=== PATIENT | female | born 1955 | race African-American/Black ===

== ENCOUNTER 2017-11-13 19:19 | Emergency (ER) | payer MEDICARE, MEDICAID ==
[~2017-11-13] VITALS: Ht 157.5 cm; Wt 102.5 kg
[~2017-11-13 19:19] MED LIST: ALDACTONE25 MG ORAL; ASPIRIN81 MG ORAL; AVAPRO150 MG ORAL; COREG3.125 MG ORAL; COUMADIN7.5 MG ORAL; FUROSEMIDE40 MG ORAL; GLIPIZIDE-METF1 EAC2; HUMULIN R100 UNIT/1; LOTRISONE TOPIC; NOVOLOG100 UNITS1; TEMOVATE15 GM TOPIC; UNOBMED; VERAPAMIL ER180 MG PO
[2017-11-13] MEDS ORDERED: ACETAMINOPHEN-1 EAC1 ORAL (20:52)
[2017-11-13] MEDS ORDERED: AMOXICILLIN500 MG ORAL (20:52)
[2017-11-13 21:18] VITALS: BP 134/89
--- NOTE | 2017-11-13 21:55 | Emergency Room Report ---
History of Present Illness General Chief Complaint: Toothache Source: Patient, Medical Record Present Illness HPI The patient is a 62-year-old female presenting for tooth pain. She states that this began 4 days prior. Pain is a 10 out of 10 throbbing sensation to the right upper jaw. Pain worse with chewing. She has not taken any pain medications at home. She also noticed increased bleeding to the area with brushing. She denies any other symptoms including nausea, vomiting, fever, chills, sore throat, rash Allergies: Coded Allergies: No Known Allergies (Unverified , 09/09/16) Patient History Past Medical History: see triage record Pertinent Family History: none Last Menstrual Period: none Now: No : 2 Para: 2 Reviewed Nursing Documentation: PMH: Agreed, PSxH: Agreed Nursing Documentation-PMH Hx Hypertension: Yes Hx Diabetes: Yes Review of Systems All Other Systems: negative except mentioned in HPI Physical Exam Vital Signs Date Time Temp Pulse Resp B/P (MAP) Pulse Ox O2 Delivery O2 Flow Rate FiO2 11/13/17 19:32 102.0 115 18 145/69 94 Room Air Sp02 EP Interpretation: reviewed, normal General Appearance: no apparent distress, alert, GCS 15, non-toxic Head: normocephalic, atraumatic Eyes: bilateral eye normal inspection, bilateral eye PERRL ENT: hearing grossly normal, normal pharynx, no angioedema, normal voice, other - TTP over the R upper premolar. No fluctuance. There is some surrounding erythema Neck: full range of motion, supple/symm/no masses Respiratory: chest non-tender, lungs clear, normal breath sounds, speaking full sentences Cardiovascular #1: regular rate, rhythm, no edema Musculoskeletal: back normal, gait/station normal, normal range of motion, non- tender Neurologic: alert, oriented x3, responsive, motor strength/tone normal, sensory intact, speech normal Psychiatric: judgement/insight normal, memory normal, mood/affect normal, no suicidal/homicidal ideation Skin: normal color, no rash, warm/dry, well hydrated Medical Decision Making PA Attestation Dr. Rivera is my supervising physician. Patient management was discussed with my supervising physician Diagnostic Impression: Primary Impression: Dental infection ER Course The patient is a 62-year-old female presenting for tooth pain. Diagnoses considered but not limited to: Dental zaida, dental abscess, toothache , gingivitis PE: Afebrile. NAD TTP over the R upper premolar. No fluctuance. There is some surrounding erythema No lymphadenopathy The patient will be DC'ed home and needs to see dentist RANDI. She is given a prescription for pain medication and amoxicillin. ER precautions given Last Vital Signs Date Time Temp Pulse Resp B/P (MAP) Pulse Ox O2 Delivery O2 Flow Rate FiO2 11/13/17 21:18 102.0 18 134/89 94 Room Air 11/13/17 19:32 115 Status: improved Disposition: HOME, SELF-CARE Condition: Improved Scripts Amoxicillin* (AMOXIL*) 500 Mg Capsule 500 MG ORAL Q12HR, #20 CAP Prov: DORY RICO 11/13/17 Acetaminophen With Codeine (T#3) (TYLENOL #3 TAB*) Y Tab 1 TAB ORAL Q6HR Y for For Pain, #10 TAB Prov: DORY RICO. 11/13/17 Patient Instructions: Dental Pain Additional Instructions: Please follow up with dentist as soon as possible. Return to the emergency department if you notice fever, chills, increasing pain , difficulty swallowing, inability to open jaw, or for any other reason DORY RICO Nov 13, 2017 21:55
== END 2017-11-13 21:18 | disposition home or self-care (01) ==
LOC: EMR 19:50
DX: K04.7 Periapical abscess without sinus (principal); E11.9 Type 2 diabetes mellitus without complications; I10 Essential (primary) hypertension
CPT/HCPCS: 99283

== ENCOUNTER 2017-11-18 19:04 | Inpatient (IN) | payer MEDICARE, MEDICAID ==
[~2017-11-18] VITALS: Ht 157.5 cm; Wt 95.7 kg
[~2017-11-18 19:04] MED LIST changes: +ACETAMINOPHEN-1 EAC1 ORAL; +AMOXICILLIN500 MG ORAL
[2017-11-18] MEDS ORDERED: HYDROCHLOROTH12.5 MG ORAL (19:37)
[2017-11-18] MEDS ORDERED: CARTIA XT120 MG ORAL (19:37)
[2017-11-18] MEDS ORDERED: FOLIC ACID1 MG ORAL (19:37)
[2017-11-18] MEDS ORDERED: PANTOPRAZOLE SO40 MG ORAL (19:37)
[2017-11-18] MEDS ORDERED: ZESTRIL10 MG ORAL (19:37)
[2017-11-18] MEDS ORDERED: ASPIRIN EC81 MG ORAL (19:37)
[2017-11-18] MEDS ORDERED: Aspirin Baby 81mg ORAL ONE (19:45)
[2017-11-18 19:54] VITALS: BP 127/86
[2017-11-18 20:02] LABS: HEMOGLOBIN 7.9 G/DL (12.0-16.0); MEAN CORPUSCULAR VOLUME 88 FL (80-99); PLATELET COUNT 289 K/UL (150-450); RED BLOOD COUNT 2.94 M/UL (4.20-5.40); RED CELL DISTRIBUTION WIDTH 13.5 % (11.6-14.8); WHITE BLOOD COUNT 11.8 K/UL (4.8-10.8)
[2017-11-18 20:30] LABS: ALANINE AMINOTRANSFERASE 46 U/L (12-78); ALBUMIN 2.7 G/DL (3.4-5.0); ALBUMIN/GLOBULIN RATIO 0.5 (1.0-2.7); ALKALINE PHOSPHATASE 124 U/L (46-116); ANION GAP 10 mmol/L (5-15); ASPARTATE AMINO TRANSFERASE 57 U/L (15-37); BILIRUBIN,TOTAL 0.6 MG/DL (0.2-1.0); BLOOD UREA NITROGEN 94 mg/dL (7-18); CALCIUM 8.9 MG/DL (8.5-10.1); CARBON DIOXIDE 25 MMOL/L (21-32); CHLORIDE 96 MMOL/L (98-107); CREATININE 3.6 MG/DL (0.55-1.30); SODIUM 131 MMOL/L (136-145)
[2017-11-18 20:40] LABS: APPEARANCE,URINE SLIGHTLY CLOUDY; BILIRUBIN, URINE 1+ (NEGATIVE); GLUCOSE, URINE (UA) 3+ (NEGATIVE); KETONES,URINE 1+ (NEGATIVE); LEUKOCYTE ESTERASE ,URINE 1+ (NEGATIVE); NITRITE,URINE NEGATIVE (NEGATIVE); PH,URINE 5 (4.5-8.0); PROTEIN,URINE 2+ (NEGATIVE); UROBILINOGEN,URINE NORMAL MG/DL (0.0-1.0)
[2017-11-18 20:41] LABS: COLOR,URINE YELLOW
[2017-11-18] MEDS ORDERED: Sodium Polystyrene Sulfonate 15gm Powder ORAL ONE (20:45)
[2017-11-18] MEDS ORDERED: Calcium Gluconate 1gm/10ml vial IVP ONE (20:45)
--- NOTE | 2017-11-18 20:45 | Emergency Room Report ---
History of Present Illness General Chief Complaint: General Complaint Source: Patient Present Illness HPI 62-year-old female brought in by EMS for altered mental status Time of evaluation, family members not present Patient endorses "the devil poisoned my soup." States she is not sure if she took all her medication today HPI otherwise limited Allergies: Coded Allergies: No Known Allergies (Unverified , 09/09/16) Patient History Last Menstrual Period: NA Now: No Nursing Documentation-PMH Hx Hypertension: Yes Hx Diabetes: Yes Physical Exam Vital Signs Date Time Temp Pulse Resp B/P (MAP) Pulse Ox O2 Delivery O2 Flow Rate FiO2 11/18/17 19:10 98.2 159 22 107/62 98 Sp02 EP Interpretation: reviewed, normal General Appearance: normal inspection, well appearing, no apparent distress, alert, GCS 15, non-toxic Head: normocephalic, atraumatic Eyes: bilateral eye PERRL, bilateral eye EOMI ENT: normal ENT inspection, hearing grossly normal, normal pharynx, no angioedema, normal voice, TMs + canals normal, uvula midline, moist mucus membranes Neck: normal inspection, full range of motion, supple, thyroid normal, no meningismus, no bony tend Respiratory: normal inspection, lungs clear, normal breath sounds, no rhonchi, no respiratory distress, no retraction, no accessory muscle use, no wheezing, speaking full sentences Cardiovascular #1: no edema, no JVD, normal capillary refill, tachycardia Gastrointestinal: normal inspection, normal bowel sounds, non tender, soft, no mass, no peritonitis, non-distended, no guarding, no hernia, no pulsatile mass Genitourinary: no CVA tenderness Musculoskeletal: normal inspection, back normal, normal range of motion, no calf tenderness, pelvis stable, Jelena's Sign negative Neurologic: normal inspection, alert, oriented x3, responsive, physiotherapy assistant III-XII nml as tested, motor strength/tone normal, cerebellar normal, normal gait, speech normal Psychiatric: normal inspection, judgement/insight normal, mood/affect normal, no suicidal/homicidal ideation, no delusions Skin: normal inspection, normal color, no rash Lymphatic: normal inspection, no adenopathy Medical Decision Making Diagnostic Impression: Primary Impression: Hyperkalemia Additional Impressions: Tachycardia CKD (chronic kidney disease) Qualified Codes: N18.9 - Chronic kidney disease, unspecified ER Course 62-year-old female with altered mental status On monitor patient's heart rate fluctuates between 107 and 145 many PVCs seen ECG sinus tachycardia, new T wave inversions in the inferior and lateral leads not seen on previous ECG here Was given aspirin Labs show potassium of 6.0, elevated serum creatinine Was given calcium gluconate, and insulin (glucose over 400), and Kayexalate Was not given albuterol for hyperkalemia 22 tachycardia Troponin within normal limits CT head does not show any contribution to altered mental status Dr Cardona from insurance approved for stay here d/t elevated K Endorsed to Dr Sutton per insurance Tele admit, 1022p, EKG Diagnostic Results Rate: tachycardiac Rhythm: NSR ST Segments: other - TWI in inferior and lateral leads Rhythm Strip Diag. Results EP Interpretation: yes Rate: 107-150 Rhythm: other - Multiple PVCs Chest X-Ray Diagnostic Results Chest X-Ray Diagnostic Results : Chest X-Ray Ordered: Yes # of Views/Limited/Complete: 1 View Indication: Other - AMS EP Interpretation: Yes Interpretation: no consolidation, no effusion, no pneumothorax, no acute cardiopulmonary disease Impression: No acute disease Electronically Signed by: Dr Maisha Perales MD Last Vital Signs Date Time Temp Pulse Resp B/P (MAP) Pulse Ox O2 Delivery O2 Flow Rate FiO2 11/18/17 19:54 98.2 146 22 127/86 98 Status: improved Disposition: ADMITTED INPATIENT Condition: Serious Referrals: NON PHYSICIAN (PCP) MAISHA PERALES M.D. Nov 18, 2017 20:45
[2017-11-18] MEDS ORDERED: cefTRIAXone 1 GM in NS 55 ML IVPB ONE (22:00)
[2017-11-18 22:28] VITALS: BP 150/74
[2017-11-18 23:07] LABS: INR > 10.0 (0.9-1.1)
[2017-11-18] MEDS ORDERED: Phytonadione 5 MG in D5W 55 ML IVPB ONE (23:30)
[2017-11-18 23:36] VITALS: BP 119/47
[2017-11-19] VITALS (17 sets, daily range): BP systolic 112–159; BP diastolic 43–117
[2017-11-19] MEDS ORDERED: D5 1/2NS 1,000 ML IV SCH (00:12)
[2017-11-19] MEDS ORDERED: Phytonadione 10 mg/mL 1ml amp ONE ×2 (01:28→06:22)
[2017-11-19 05:14] LABS: HEMATOCRIT 21.6 % (37.0-47.0); MEAN CORPUSCULAR VOLUME 90 FL (80-99); PLATELET COUNT 266 K/UL (150-450); RED BLOOD COUNT 2.42 M/UL (4.20-5.40); RED CELL DISTRIBUTION WIDTH 14.1 % (11.6-14.8)
[2017-11-19 05:24] LABS: INR > 10.0 (0.9-1.1)
[2017-11-19 05:25] LABS: HEMOGLOBIN 6.8 G/DL (12.0-16.0)
[2017-11-19 05:40] LABS: ALANINE AMINOTRANSFERASE 37 U/L (12-78); ALBUMIN 2.4 G/DL (3.4-5.0); ALBUMIN/GLOBULIN RATIO 0.5 (1.0-2.7); ALKALINE PHOSPHATASE 104 U/L (46-116); ANION GAP 15 mmol/L (5-15); ASPARTATE AMINO TRANSFERASE 47 U/L (15-37); BILIRUBIN,TOTAL 0.6 MG/DL (0.2-1.0); BLOOD UREA NITROGEN 97 mg/dL (7-18); CALCIUM 8.6 MG/DL (8.5-10.1); CARBON DIOXIDE 20 MMOL/L (21-32); CHLORIDE 98 MMOL/L (98-107); CREATININE 2.9 MG/DL (0.55-1.30); POTASSIUM 5.6 MMOL/L (3.5-5.1); SODIUM 133 MMOL/L (136-145)
[2017-11-19] MEDS ORDERED: Phytonadione 10 MG in D5W 55 ML IVPB ONE (05:45)
[2017-11-19] MEDS: NovoLOG Insulin Flexpen SUBQ SCH ×4 (06:05→21:07)
--- NOTE | 2017-11-19 08:19 | Diagnostic Imaging Report ---
Indication: Altered mental status Technique: XRAY Chest 1v Comparison: 09/09/2016 Findings: Heart size and mediastinal contours are stable. There is pulmonary vascular congestion. There is no focal airspace consolidation, pleural effusion or pneumothorax. Multilevel degenerative changes are seen in the thoracic spine. No acute osseous abnormality is seen. Impression: Cardiomegaly with pulmonary vascular congestion.
[2017-11-19] MEDS ORDERED: metFORMIN 500mg tab ORAL SCH (09:00)
[2017-11-19] MEDS ORDERED: GlipiZIDE 5mg tab ORAL SCH (09:00)
[2017-11-19] MEDS ORDERED: cefTRIAXone 1 GM in NS 55 ML IVPB SCH (09:00)
[2017-11-19] MEDS ORDERED: dilTIAZem HCl CD 120mg cap ORAL SCH (09:00)
[2017-11-19] MEDS ORDERED: Aspirin Baby 81mg ORAL SCH (09:00)
--- NOTE | 2017-11-19 09:37 | Diagnostic Imaging Report ---
Indication: Mental status Technique: Continuous helical CT scanning of the head was performed utilizing automated exposure control without intravenous contrast material. Axial and coronal reconstructions were obtained. Comparison: None CT dose: Total DLP 1400.72 mGycm; CTDI vol 70.38 mGy Findings: There is no acute intracranial hemorrhage, mass effect or cortical edema. The ventricles, cisterns and sulci are prominent consistent with atrophy. Mild periventricular hypoattenuation is seen, a nonspecific finding. The posterior fossa and fourth ventricle are unremarkable. Visualized mastoid air cells and paranasal sinuses are unremarkable. No focal lesions of the bony calvarium or soft tissues of the scalp are seen. Atherosclerotic calcifications noted in the cavernous portions of the bilateral internal carotid arteries. Impression: No evidence of acute intracranial hemorrhage, mass effect or cortical edema. MRI may be obtained for more sensitive evaluation as clinically indicated. Mild atrophy and nonspecific periventricular hypoattenuation suggestive of chronic ischemic microvascular changes. This corresponds with the statrad preliminary report. The CT scanner at [facility] is accredited by the [employer] and the scans are performed using protocols designed to limit radiation exposure to as low as reasonably achievable to attain images of sufficient resolution adequate for diagnostic evaluation.
[2017-11-19] MEDS: D5 1/2NS 1,000 ML IV SCH (12:30)
[2017-11-19] MEDS ORDERED: Insulin Rate Change 1 Each MISC PRN (14:30)
[2017-11-19] MEDS ORDERED: NovoLOG Insulin Flexpen SUBQ SCH (16:30)
[2017-11-19] MEDS: GlipiZIDE 5mg tab ORAL SCH (16:49)
--- NOTE | 2017-11-19 18:27 | History & Physical ---
History and Physical History & Physicial # [id number] arf with hyperkalemia coagulopathy anemia htn ams delirium TIARRA ENGLISH DO Nov 19, 2017 18:27
[2017-11-19] MEDS: Levemir Flexpen SUBQ SCH (18:55)
--- NOTE | 2017-11-19 21:45 | History and Physical Report ---
DATE OF ADMISSION: 11/18/2017 REASON FOR CONSULTATION: Altered mental status. HISTORY OF PRESENT ILLNESS: This is a 62-year-old female, brought in by [facility] for altered mental status and delirium. The patient was hallucinating and was unable to provide history. In the emergency room, she was found to have hyperkalemia, tachycardia, renal insufficiency, was given calcium gluconate, insulin, and Kayexalate. CT of her head did not show any bleed or shift or mass and she was transferred to the floor. Subsequently, she was found to have an INR of 10 and a PTT of 100 in the emergency room and that was repeated today. She was given FFP and platelets, and in addition, her potassium and sodium were and elevated and reduced respectively and transferred to the intensive care unit. She is arousable. She tolerated dinner tonight. She is currently in no acute respiratory distress. She was also experiencing hyperglycemia and was initially started on an insulin drip that subsequently was stopped and Levemir has been started. PAST MEDICAL HISTORY: Includes diabetes, hypertension, obesity, GERD. SOCIAL HISTORY: Negative for tobacco, alcohol, or drugs. PRESENT MEDICATIONS: Prehospital course of medications reviewed, reconciled, and documented in the electronic medical record. PHYSICAL EXAMINATION: GENERAL: At the time of my exam, she is alert and oriented as stated, no acute respiratory distress. VITAL SIGNS: She is currently afebrile. Her pulse is 89, blood pressure 127/43, she is 99% on room air. HEENT: Normocephalic and atraumatic. Oropharynx is moist. Nasal mucosa moist. NECK: Supple. No lymphadenopathy. LUNGS: Decreased breath sounds at the bases. No wheeze present. HEART: Regular rate and rhythm without a murmur. ABDOMEN: Soft, nontender, but obese. Positive bowel sounds. EXTREMITIES: With trace edema. No focal neurologic deficits. Follows commands and conversation is appropriate. LABORATORY DATA: Her current laboratory values show sodium 138, potassium 5.6, chloride 98, bicarb 20, BUN is 97, creatinine is 2.9, glucose is 499. Her white count 10, her hemoglobin was 6.8, and her platelets were 266,000. Her last INR was 10. Her urinalysis was 1+ leukocyte esterase. No culture is pending, and her medications have been reviewed. ASSESSMENT: Acute renal insufficiency with hyperkalemia; hypertension; coagulopathy with significantly elevated INR; diabetes, poorly-controlled; and altered mental status. PLAN: Plan for the patient, continue to follow her in the intensive care unit. Repeat her labs in the morning including a PTT, glycemic control per Dr. Piper. Aspiration precautions. IV antibiotics. We will check urine culture. Recheck her labs in the morning, monitor her progress, and treat hyperkalemia accordingly. Wound Care and we will continue to follow the patient for the remainder of her hospital stay. Miguelina Cervantes D.O. DR: JOSEPH JOB#: [id number] CC:
[2017-11-20] VITALS (18 sets, daily range): BP systolic 120–170; BP diastolic 41–106
[2017-11-20] MEDS: D5 1/2NS 1,000 ML IV SCH ×2 (01:50→11:04)
[2017-11-20] MEDS: GlipiZIDE 5mg tab ORAL SCH ×2 (06:20→16:28)
[2017-11-20] MEDS: Levemir Flexpen SUBQ SCH ×2 (06:22→18:33)
[2017-11-20] MEDS: NovoLOG Insulin Flexpen SUBQ SCH ×8 (06:23→21:22)
[2017-11-20] MEDS ORDERED: cefTRIAXone 1 GM in NS 55 ML IVPB SCH (09:00)
[2017-11-20] MEDS ORDERED: dilTIAZem HCl CD 120mg cap ORAL SCH (09:00)
[2017-11-20] MEDS ORDERED: Aspirin Baby 81mg ORAL SCH (09:00)
[2017-11-20 09:19] LABS: BASOPHILS % (AUTO) 0.8 % (0.0-2.0); EOSINOPHILS % (AUTO) 0.5 % (0.0-3.0); HEMATOCRIT 27.2 % (37.0-47.0); HEMOGLOBIN 8.1 G/DL (12.0-16.0); LYMPHOCYTES % (AUTO) 12.1 % (20.0-45.0); MEAN CORPUSCULAR VOLUME 95 FL (80-99); NEUTROPHILS % (AUTO) 70.7 % (45.0-75.0); PLATELET COUNT 241 K/UL (150-450); RED BLOOD COUNT 2.86 M/UL (4.20-5.40); WHITE BLOOD COUNT 7.1 K/UL (4.8-10.8)
[2017-11-20 09:28] LABS: INR 1.2 (0.9-1.1)
--- NOTE | 2017-11-20 10:06 | Diagnostic Imaging Report ---
Indication: Altered mental status Technique: XRAY Chest 1v Comparison: 11/16/2017 Findings: Heart size and mediastinal contours are stable. There is pulmonary vascular congestion. Subtle haziness of the right lower lung likely related to bronchovascular crowding given low lung volumes and vascular congestion. Developing pneumonia is not entirely excluded. No pneumothorax or pleural effusion. Multilevel degenerative changes are seen in the thoracic spine. No acute osseous abnormality is seen. Impression: Cardiomegaly with pulmonary vascular congestion. Subtle haziness in the right lower lung possibly related to vascular crowding given low lung volumes, developing pneumonia is not excluded. Follow-up exam recommended.
[2017-11-20] MEDS ORDERED: D5 1/2NS 1000ml IV ONE ×2 (10:43→15:46)
[2017-11-20] MEDS ORDERED: Tubing Blood Filter IV ONE (10:43)
[2017-11-20] MEDS ORDERED: NS 500ML ONE (10:43)
[2017-11-20 10:54] LABS: ALANINE AMINOTRANSFERASE 34 U/L (12-78); ALBUMIN/GLOBULIN RATIO 0.5 (1.0-2.7); ALKALINE PHOSPHATASE 92 U/L (46-116); ANION GAP 7 mmol/L (5-15); ASPARTATE AMINO TRANSFERASE 38 U/L (15-37); BILIRUBIN,TOTAL 0.7 MG/DL (0.2-1.0); BLOOD UREA NITROGEN 54 mg/dL (7-18); CARBON DIOXIDE 26 MMOL/L (21-32); CHLORIDE 99 MMOL/L (98-107); CREATININE 1.8 MG/DL (0.55-1.30); POTASSIUM 3.1 MMOL/L (3.5-5.1); SODIUM 132 MMOL/L (136-145)
--- NOTE | 2017-11-20 15:06 | Cardiology Report ---
APPROVED REPORT EKG Measurement Heart [id number] Sinus tachycardia T wave abnormality, consider inferolateral ischemia Abnormal ECG
--- NOTE | 2017-11-20 15:18 | Pulmonolgy Critical Care Note ---
Critical Care - Asmt/Plan Assessment/Plan: Acute renal insufficiency with hyperkalemia; hypertension; coagulopathy with significantly elevated INR; diabetes, poorly-controlled; altered mental status. BS per endocrine (Dr Hill) INR resolved IVF aspiration precautions fu labs am cxr with edema, check Echo pt 35 mintues of critical care time reviewing the case,discussing [facility] staff, orders and dw patient. Critical Care - Objective Last 24 Hour Vital Signs Date Time Temp Pulse Resp B/P (MAP) Pulse Ox O2 Delivery O2 Flow Rate FiO2 11/20/17 12:00 78 24 137/46 95 Room Air 11/20/17 12:00 78 11/20/17 11:00 79 24 149/47 95 Room Air 11/20/17 10:00 84 24 146/62 97 Room Air 11/20/17 09:00 88 24 165/58 98 Room Air 11/20/17 08:54 88 157/61 11/20/17 08:54 96 157/61 11/20/17 08:00 89 11/20/17 08:00 99.3 92 27 157/61 100 Room Air 11/20/17 07:00 88 24 170/106 95 Room Air 11/20/17 06:00 83 20 154/52 95 Room Air 11/20/17 05:00 86 24 131/46 94 Room Air 11/20/17 04:00 99.0 85 26 138/41 95 Room Air 11/20/17 03:45 87 11/20/17 03:00 87 26 138/42 94 Room Air 11/20/17 02:00 91 26 126/46 95 Room Air 11/20/17 01:00 91 27 136/53 96 Room Air 11/20/17 00:20 88 11/20/17 00:00 99.1 91 26 120/49 97 Room Air 11/19/17 23:00 100 24 136/43 98 Room Air 11/19/17 22:00 102 24 141/117 97 Room Air 11/19/17 21:01 100 153/54 11/19/17 21:00 99.0 97 25 150/45 94 Room Air 11/19/17 20:00 99.3 96 27 135/60 95 Room Air 11/19/17 19:50 91 11/19/17 19:00 88 19 130/59 99 Room Air 11/19/17 18:00 89 20 147/43 99 Room Air 11/19/17 17:00 90 20 146/57 99 Room Air 11/19/17 16:00 98.0 94 20 112/49 99 Room Air 11/19/17 16:00 90 Status: awake Lungs: clear Heart: HR/BP stable Abdomen: soft, non-tender Extremities: no C/C/E Decubiti: stage Micro: Microbiology Date/Time Source Procedure Growth Status 11/18/17 20:25 Urine,Clean Catch Urine Culture - Preliminary NO GROWTH Resulted Accucheck: 304 Blood Sugars: BS not controlled Critical Care - Subjective ROS Limited/Unobtainable: Yes Condition: improving I&O: Intake and Output 11/19/17 11/20/17 19:00 07:00 Intake Total 558.76 ml 1300 ml Output Total 500 ml 150 ml Balance 58.76 ml 1150 ml Intake Oral 300 ml IV Total 28.76 ml 750 ml Blood Product 500 ml 250 ml Other 30 ml Output Urine Total 500 ml 150 ml # Voids 3 2 # Bowel Movements 2 Subjective: much improved not confused toelrating po no fever no bleeding oob but waek no cp cough or Labs: Current Medications Medications (Trade) Dose Ordered Sig/Helen Route PRN Reason Start Time Stop Time Status Last Admin Dose Admin Aspirin (ASA) 81 mg DAILY ORAL 11/20/17 09:00 12/19/17 08:59 11/20/17 08:53 Carvedilol (Coreg) 3.125 mg EVERY 12 HOURS ORAL 11/19/17 21:00 12/19/17 08:59 11/20/17 08:54 Ceftriaxone Sodium 1 gm/ Sodium Chloride 55 ml @ 110 mls/hr DAILY IVPB 11/20/17 09:00 11/26/17 08:59 11/20/17 08:53 Dextrose (Dextrose 50%) PRN PRN IV HYPOGLYCEMIA 11/19/17 13:30 12/19/17 13:29 Dextrose (Dextrose 50%) STAT PRN IV Hypoglycemia 11/20/17 05:00 12/19/17 04:59 Dextrose/Sodium Chloride 1,000 ml @ 75 mls/hr [id number] IV 11/19/17 12:30 12/19/17 00:11 11/20/17 11:04 Diltiazem HCl (Cardizem CD) 120 mg DAILY ORAL 11/20/17 09:00 12/19/17 08:59 11/20/17 08:54 Folic Acid (Folate) 1 mg DAILY ORAL 11/20/17 09:00 12/19/17 08:59 11/20/17 08:54 Glipizide (Glucotrol) 5 mg BIAC ORAL 11/19/17 16:30 12/19/17 16:29 11/20/17 06:20 Insulin Aspart (NovoLOG) BEFORE MEALS AND HS SUBQ 11/19/17 21:00 12/19/17 20:59 11/20/17 11:37 Insulin Aspart (NovoLOG) 10 units BEFORE MEALS AND HS SUBQ 11/19/17 21:00 12/19/17 20:59 11/20/17 11:39 Insulin Detemir (Levemir) 25 units Q12HR@0600,1800 SUBQ 11/19/17 19:00 12/19/17 18:59 11/20/17 06:22 Pantoprazole (Protonix) 40 mg ACBREAKFAST ORAL 11/20/17 06:30 12/20/17 06:29 11/20/17 06:20 Laboratory Tests Test 11/20/17 08:50 White Blood Count 7.1 K/UL (4.8-10.8) Red Blood Count 2.86 M/UL (4.20-5.40) L Hemoglobin 8.1 G/DL (12.0-16.0) L Hematocrit 27.2 % (37.0-47.0) L Mean Corpuscular Volume 95 FL (80-99) Mean Corpuscular Hemoglobin 28.3 PG (27.0-31.0) Mean Corpuscular Hemoglobin Concent 29.8 G/DL (32.0-36.0) L Red Cell Distribution Width 14.0 % (11.6-14.8) Platelet Count 241 K/UL (150-450) Mean Platelet Volume 6.9 FL (6.5-10.1) Neutrophils (%) (Auto) 70.7 % (45.0-75.0) Lymphocytes (%) (Auto) 12.1 % (20.0-45.0) L Monocytes (%) (Auto) 16.0 % (1.0-10.0) H Eosinophils (%) (Auto) 0.5 % (0.0-3.0) Basophils (%) (Auto) 0.8 % (0.0-2.0) Prothrombin Time 12.7 SEC (9.30-11.50) H Prothromb Time International Ratio 1.2 (0.9-1.1) H Sodium Level 132 MMOL/L (136-145) L Potassium Level 3.1 MMOL/L (3.5-5.1) L Chloride Level 99 MMOL/L (98-107) Carbon Dioxide Level 26 MMOL/L (21-32) Anion Gap 7 mmol/L (5-15) Blood Urea Nitrogen 54 mg/dL (7-18) H Creatinine 1.8 MG/DL (0.55-1.30) H Estimat Glomerular Filtration Rate 34.4 mL/min (>60) Glucose Level 841 MG/DL (74-106) #*H Calcium Level 7.0 MG/DL (8.5-10.1) L Magnesium Level 2.4 MG/DL (1.8-2.4) Total Bilirubin 0.7 MG/DL (0.2-1.0) Aspartate Amino Transf (AST/SGOT) 38 U/L (15-37) H Alanine Aminotransferase (ALT/SGPT) 34 U/L (12-78) Alkaline Phosphatase 92 U/L (46-116) Troponin I 0.027 ng/mL (0.000-0.056) Total Protein 6.1 G/DL (6.4-8.2) L Albumin 2.0 G/DL (3.4-5.0) L Globulin 4.1 g/dL Albumin/Globulin Ratio 0.5 (1.0-2.7) TIARRA MENSAH DO Nov 20, 2017 15:17
[2017-11-20] MEDS ORDERED: Tubing IV Secondary IV ONE (15:46)
[2017-11-20] MEDS ORDERED: D5 1/2NS 1,000 ML IV SCH (19:00)
[2017-11-21] VITALS: BP 157/73
--- NOTE | 2017-11-21 04:00 | Consultation ---
DATE OF CONSULTATION: 11/20/2017 EDOCRINOLOGY CONSULTATION LOCATION: ICU Bed B. CONSULTING PHYSICIAN: Ramu Piper M.D. REFERRING PHYSICIAN: Ramu Sutton M.D. REASON FOR CONSULTATION: I was asked to see this 62-year-old black female referred by Dr. Sutton in Endocrinology consultation for evaluation and management of type 2 diabetes mellitus out of control rPERTINENT HISTORY: The patient had altered mental status with glucose of __[id number], who is being transferred to ICU. She was started on detemir insulin 25 units q.12 hours, NovoLog 10 units t.i.d. before meals. PAST MEDICAL HISTORY: Hypertension and obesity PAST SURGICAL HISTORY: negative__ FAMILY HISTORY: Unremarkable. PERSONAL HISTORY: Tobacco abuse. REVIEW OF SYSTEMS: A 14-point review is unremarkable _. PHYSICAL EXAMINATION: GENERAL: The patient is obese in no acute distress. VITAL SIGNS: Blood pressure _140/80, pulse 92, respiratory rate _18,T98.Wl 100 kg._ . HEENT: Unremarkable. LUNGS: Clear. CARDIOVASCULAR: Heart sounds are regular. ABDOMEN: Obese. Bowel sounds present. EXTREMITIES: No edema. NEUROLOGIC: Cranial nerves II through XII intact. Toes are downgoing to plantar stimulation. LABORATORY DATA: Glucose 379, ASSESSMENT: 1.Diabetes Mellitus coming under contro 2.Hypetension PLAN: Detemir 25u sxc q12 with Novolog 10u sc TID a dglucotrol 5 mg po qam, BMP and Hba1c in am. isinopril 10 mg po qam.Ns 75 cc/hr.BMP an [id number] in am. Ramu Piper M.D. DR: Nishi JOB#: [id number] CC: DANO
[2017-11-21 04:15] VITALS: BP 142/72
[2017-11-21] MEDS: GlipiZIDE 5mg tab ORAL SCH ×2 (06:22→17:05)
[2017-11-21] MEDS: Levemir Flexpen SUBQ SCH ×2 (06:24→17:08)
[2017-11-21] MEDS: NovoLOG Insulin Flexpen SUBQ SCH ×9 (06:25→21:55)
[2017-11-21] MEDS: Albuterol/Ipratropium 3ml neb HHN PRN ×2 (06:39→11:47)
[2017-11-21 06:48] LABS: BASOPHILS % (AUTO) 0.8 % (0.0-2.0); EOSINOPHILS % (AUTO) 1.2 % (0.0-3.0); LYMPHOCYTES % (AUTO) 15.4 % (20.0-45.0); MEAN CORPUSCULAR VOLUME 89 FL (80-99); MONOCYTES % (AUTO) 18.8 % (1.0-10.0); NEUTROPHILS % (AUTO) 63.8 % (45.0-75.0); PLATELET COUNT 279 K/UL (150-450); RED BLOOD COUNT 3.14 M/UL (4.20-5.40); RED CELL DISTRIBUTION WIDTH 13.1 % (11.6-14.8); WHITE BLOOD COUNT 6.9 K/UL (4.8-10.8)
[2017-11-21 07:03] LABS: ANION GAP 3 mmol/L (5-15); BLOOD UREA NITROGEN 36 mg/dL (7-18); CALCIUM 8.1 MG/DL (8.5-10.1); CARBON DIOXIDE 31 MMOL/L (21-32); CHLORIDE 106 MMOL/L (98-107); CREATININE 1.3 MG/DL (0.55-1.30); POTASSIUM 3.7 MMOL/L (3.5-5.1); SODIUM 140 MMOL/L (136-145)
[2017-11-21 08:00] VITALS: BP 132/85
[2017-11-21] MEDS: cefTRIAXone 1 GM in NS 55 ML IVPB SCH (08:50)
[2017-11-21] MEDS: Aspirin Baby 81mg ORAL SCH (08:51)
[2017-11-21] MEDS ORDERED: dilTIAZem HCl CD 120mg cap ORAL SCH (09:00)
--- NOTE | 2017-11-21 11:37 | Diagnostic Imaging Report ---
Indication: Reason For Exam: COPD Technique: XRAY Chest 1v Comparison:11/20/2017 Findings: Patient is taking a poor aspiration. The heart appears enlarged. Pulmonary vascular prominence is noted. No pleural fluid. Bones are unremarkable with the exception of degenerative changes of thoracic spine. Impression: Poor inspiration Cardiomegaly. Mild prominence of pulmonary vascularity. It is uncertain whether this represents congestive heart failure or is secondary to the poor respiration. Follow-up with better inspiration and clinical correlation suggested.
--- NOTE | 2017-11-21 11:59 | General Progress Note ---
Assessment/Plan Assessment/Plan Acute renal insufficiency with hyperkalemia, resolving hypertension coagulopathy with significantly elevated INR diabetes, poorly-controlled altered mental status, resolved BS per endocrine (Dr Piper) INR now normal DC IVF cxr with edema, check Echo OT/PT increase BP rx Subjective Constitutional: Reports: weakness Respiratory: Reports: cough Allergies: Coded Allergies: No Known Allergies (Unverified , 09/09/16) Objective Last 24 Hour Vital Signs Date Time Temp Pulse Resp B/P (MAP) Pulse Ox O2 Delivery O2 Flow Rate FiO2 11/21/17 11:47 81 20 96 Room Air 21 11/21/17 08:52 99 169/68 11/21/17 08:51 99 169/68 11/21/17 08:00 88 11/21/17 08:00 98.2 96 18 132/85 96 11/21/17 06:50 77 20 97 Room Air 21 11/21/17 06:50 74 18 98 Room Air 21 11/21/17 06:39 73 20 97 Room Air 21 11/21/17 04:15 98.0 81 20 142/72 95 Nasal Cannula 11/21/17 04:00 89 11/21/17 00:00 101.7 95 24 157/73 95 Nasal Cannula 0 11/21/17 00:00 90 11/20/17 21:20 96 127/41 11/20/17 20:00 98.0 95 20 137/66 94 11/20/17 20:00 104 11/20/17 16:00 97.8 83 23 127/41 96 Room Air 11/20/17 16:00 96 11/20/17 15:00 85 24 141/48 96 Room Air 11/20/17 14:00 89 24 152/50 98 Room Air 11/20/17 13:00 91 24 149/58 99 Room Air 11/20/17 12:00 98.7 78 24 137/46 95 Room Air 11/20/17 12:00 78 Intake and Output 11/20/17 11/21/17 19:00 07:00 Intake Total 980 ml Output Total 600 ml Balance 380 ml Intake Oral 250 ml IV Total 730 ml Output Urine Total 600 ml # Bowel Movements 2 Laboratory Tests 11/21/17 05:20: White Blood Count 6.9, Red Blood Count 3.14L, Hemoglobin 9.0L, Hematocrit 28.0L , Mean Corpuscular Volume 89, Mean Corpuscular Hemoglobin 28.8, Mean Corpuscular Hemoglobin Concent 32.3, Red Cell Distribution Width 13.1, Platelet Count 279, Mean Platelet Volume 6.8, Neutrophils (%) (Auto) 63.8, Lymphocytes (% ) (Auto) 15.4L, Monocytes (%) (Auto) 18.8H, Eosinophils (%) (Auto) 1.2, Basophils (%) (Auto) 0.8, Sodium Level 140, Potassium Level 3.7, Chloride Level 106, Carbon Dioxide Level 31, Anion Gap 3L, Blood Urea Nitrogen 36H, Creatinine 1.3, Estimat Glomerular Filtration Rate 50.2, Glucose Level 148#H, Calcium Level 8.1L, Magnesium Level 2.1, Pro-B-Type Natriuretic Peptide 1860H Height (Feet): 5 Height (Inches): 2.00 Weight (Pounds): 211 General Appearance: no apparent distress, obese Neck: supple Cardiovascular: normal rate Respiratory/Chest: lungs clear Abdomen: non tender, soft MAISHA BEDOYA Nov 21, 2017 11:59
[2017-11-21 12:00] VITALS: BP 135/53
[2017-11-21 16:00] VITALS: BP 140/63
[2017-11-21] MEDS: dilTIAZem HCl CD 120mg cap ORAL SCH (17:06)
--- NOTE | 2017-11-21 17:15 | Geriatric Medicine Prog Note ---
DATE: 11/21/2017 SUBJECTIVE: The patient is noted to be well controlled _ G/E BP 150/80,P89,R20,T98 RSSP:Clear,CVS-Regular INV:Glucose 180 ASSESSMENT:1.Diabetes Mellitus coming under control 2.Hypertension PLAN: Continue Detemur insulin 25 units q.12 h. and NovoLog 10 units t.i.d. before meals with sliding scale of NovoLog.QID ac anc HS.Lisinopril 10 mg po qd. Ramu Piper M.D. DR: VICKY JOB#: [id number] CC: DANO
[2017-11-21 20:00] VITALS: BP 145/70
[2017-11-22] VITALS: BP 138/87
[2017-11-22 04:00] VITALS: BP 140/75
[2017-11-22] MEDS: GlipiZIDE 5mg tab ORAL SCH ×2 (06:41→16:45)
[2017-11-22] MEDS: Levemir Flexpen SUBQ SCH ×2 (06:42→18:15)
[2017-11-22] MEDS: NovoLOG Insulin Flexpen SUBQ SCH ×8 (06:43→21:43)
--- NOTE | 2017-11-22 07:33 | Cardiology Report ---
APPROVED REPORT EXAM: Two-dimensional and M-mode echocardiogram with Doppler and color Doppler. INDICATION Congestive Heart Failure M-Mode DIMENSIONS IVSd1.0 (0.7-1.1cm)Left Atrium (MM)3.7 (1.6-4.0cm) LVDd5.4 (3.5-5.6cm)Aortic Root2.6 (2.0-3.7cm) PWd1.0 (0.7-1.1cm)Aortic Cusp Exc.1.8 (1.5-2.0cm) LVDs4.6 (2.5-4.0cm) PWs1.2 cm Normal left ventricular chamber size, systolic function and wall motion. Left ventricular ejection fraction estimated to be 55-60%. No evidence of left ventricular hypertrophy. No evidence of pericardial or pleural effusion. All other cardiac chamber sizes are within normal limits. Focal aortic valve sclerosis with adequate cusp excursion. Thickened mitral valve leaflets with normal excursion. Mild mitral annulus and aortic root calcification. Pulmonic valve not well visualized. Normal tricuspid valve structure. IVC is normal in size and collapsible with respiration. A color flow and spectral Doppler study was performed and revealed: No aortic regurgitation. Mild mitral regurgitation. Mitral diastolic function not obtainable due to arrhythmia. No tricuspid regurgitation. Pulmonic regurgitation present.
[2017-11-22 08:00] VITALS: BP 148/75
[2017-11-22 08:09] LABS: BASOPHILS % (AUTO) 0.8 % (0.0-2.0); EOSINOPHILS % (AUTO) 1.3 % (0.0-3.0); HEMATOCRIT 28.5 % (37.0-47.0); HEMOGLOBIN 9.1 G/DL (12.0-16.0); LYMPHOCYTES % (AUTO) 18.7 % (20.0-45.0); MEAN CORPUSCULAR VOLUME 91 FL (80-99); MONOCYTES % (AUTO) 13.8 % (1.0-10.0); NEUTROPHILS % (AUTO) 65.4 % (45.0-75.0); PLATELET COUNT 293 K/UL (150-450); RED BLOOD COUNT 3.12 M/UL (4.20-5.40); RED CELL DISTRIBUTION WIDTH 13.3 % (11.6-14.8); WHITE BLOOD COUNT 6.5 K/UL (4.8-10.8)
[2017-11-22 08:46] LABS: ALANINE AMINOTRANSFERASE 26 U/L (12-78); ALBUMIN 2.2 G/DL (3.4-5.0); ALBUMIN/GLOBULIN RATIO 0.5 (1.0-2.7); ALKALINE PHOSPHATASE 91 U/L (46-116); ANION GAP 6 mmol/L (5-15); ASPARTATE AMINO TRANSFERASE 30 U/L (15-37); BILIRUBIN,TOTAL 0.6 MG/DL (0.2-1.0); BLOOD UREA NITROGEN 24 mg/dL (7-18); CALCIUM 7.8 MG/DL (8.5-10.1); CARBON DIOXIDE 28 MMOL/L (21-32); CHLORIDE 107 MMOL/L (98-107); CHOLESTEROL 100 MG/DL (< 200); CREATININE 1.2 MG/DL (0.55-1.30); HDL CHOLESTEROL 34 MG/DL (40-60); POTASSIUM 3.7 MMOL/L (3.5-5.1); SODIUM 141 MMOL/L (136-145); TRIGLYCERIDES 108 MG/DL (30-150)
[2017-11-22] MEDS: cefTRIAXone 1 GM in NS 55 ML IVPB SCH (09:18)
[2017-11-22] MEDS: Aspirin Baby 81mg ORAL SCH (09:18)
[2017-11-22] MEDS: dilTIAZem HCl CD 120mg cap ORAL SCH ×2 (09:19→18:17)
[2017-11-22 12:00] VITALS: BP 130/60
[2017-11-22] MEDS: Albuterol/Ipratropium 3ml neb HHN PRN (13:07)
--- NOTE | 2017-11-22 13:42 | General Progress Note ---
Assessment/Plan Assessment/Plan Acute renal insufficiency with hyperkalemia, resolving hypertension coagulopathy with significantly elevated INR diabetes, poorly-controlled altered mental status, resolved T to 102 last night, not called BS per endocrine (Dr Piper) INR now normal Echo OK OT/PT ID called HHN Subjective Constitutional: Reports: fever - 102, malaise, weakness Respiratory: Reports: cough - w sputum Allergies: Coded Allergies: No Known Allergies (Unverified , 09/09/16) Objective Last 24 Hour Vital Signs Date Time Temp Pulse Resp B/P (MAP) Pulse Ox O2 Delivery O2 Flow Rate FiO2 11/22/17 13:14 78 20 98 Room Air 21 11/22/17 13:07 80 20 96 Room Air 21 11/22/17 12:00 98.1 95 20 130/60 95 11/22/17 09:19 92 140/75 11/22/17 09:19 92 140/75 11/22/17 08:00 96.8 95 20 148/75 95 11/22/17 08:00 95 11/22/17 04:00 92 11/22/17 04:00 98.7 87 20 140/75 95 11/22/17 00:00 83 11/22/17 00:00 102.0 110 18 138/87 100 11/21/17 21:50 97 145/70 11/21/17 20:00 89 11/21/17 20:00 99.9 97 20 145/70 100 11/21/17 18:05 98.9 11/21/17 18:05 98.9 11/21/17 17:06 80 135/53 11/21/17 16:00 100.0 92 19 140/63 96 11/21/17 16:00 85 Intake and Output 11/21/17 11/22/17 19:00 07:00 Intake Total 730 ml 500 ml Balance 730 ml 500 ml Intake Oral 680 ml IV Total 50 ml 500 ml # Voids 1 2 Laboratory Tests 11/22/17 07:15: White Blood Count 6.5, Red Blood Count 3.12L, Hemoglobin 9.1L, Hematocrit 28.5L , Mean Corpuscular Volume 91, Mean Corpuscular Hemoglobin 29.2, Mean Corpuscular Hemoglobin Concent 32.0, Red Cell Distribution Width 13.3, Platelet Count 293, Mean Platelet Volume 6.7, Neutrophils (%) (Auto) 65.4, Lymphocytes (% ) (Auto) 18.7L, Monocytes (%) (Auto) 13.8H, Eosinophils (%) (Auto) 1.3, Basophils (%) (Auto) 0.8, Sodium Level 141, Potassium Level 3.7, Chloride Level 107, Carbon Dioxide Level 28, Anion Gap 6, Blood Urea Nitrogen 24H, Creatinine 1.2, Estimat Glomerular Filtration Rate 54.9, Glucose Level 151H, Hemoglobin A1c 9.7H, Calcium Level 7.8L, Total Bilirubin 0.6, Aspartate Amino Transf (AST/ SGOT) 30, Alanine Aminotransferase (ALT/SGPT) 26, Alkaline Phosphatase 91, Total Protein 6.6, Albumin 2.2L, Globulin 4.4, Albumin/Globulin Ratio 0.5L, Triglycerides Level 108, Cholesterol Level 100, LDL Cholesterol 50, HDL Cholesterol 34L, Cholesterol/HDL Ratio 2.9L, Thyroid Stimulating Hormone (TSH) 0.917 Height (Feet): 5 Height (Inches): 2.00 Weight (Pounds): 211 General Appearance: no apparent distress, obese Respiratory/Chest: rhonchi - bilaterally MAISHA BEDOYA Nov 22, 2017 13:42
--- NOTE | 2017-11-22 14:12 | Infectious Diseases Prog Note ---
Assessment/Plan Problems: (1) Abscess of right internal cheek Assessment & Plan: will send blood culture to rule out bactermia and order MRI of the face to evaluate the right cheek, will switch ceftriaxon to zosyn empiric coverage, needs dental eval as an out patient for possible root canal infection (2) HCAP (healthcare-associated pneumonia) Assessment & Plan: with diffuse wheezing , will send sputum culture and start zosyn empiric coverage , monitor CXR (3) Fever Assessment & Plan: suspect due to the above , will send blood culture to rule out bacteremia and start zosyn empiric coverage (4) Dental infection Assessment & Plan: with possible root canal infection, needs dental eval as an outpatient , will start zosyn (5) Diabetes mellitus Assessment & Plan: recommend tight glycemic control to keep blood glucose between 100-140 Subjective Allergies: Coded Allergies: No Known Allergies (Unverified , 09/09/16) Objective Vital Signs Last 24 Hour Vital Signs Date Time Temp Pulse Resp B/P (MAP) Pulse Ox O2 Delivery O2 Flow Rate FiO2 11/22/17 13:14 78 20 98 Room Air 21 11/22/17 13:07 80 20 96 Room Air 21 11/22/17 12:00 98.1 95 20 130/60 95 11/22/17 09:19 92 140/75 11/22/17 09:19 92 140/75 11/22/17 08:00 96.8 95 20 148/75 95 11/22/17 08:00 95 11/22/17 04:00 92 11/22/17 04:00 98.7 87 20 140/75 95 11/22/17 00:00 83 11/22/17 00:00 102.0 110 18 138/87 100 11/21/17 21:50 97 145/70 11/21/17 20:00 89 11/21/17 20:00 99.9 97 20 145/70 100 11/21/17 18:05 98.9 11/21/17 18:05 98.9 11/21/17 17:06 80 135/53 11/21/17 16:00 100.0 92 19 140/63 96 11/21/17 16:00 85 Height (Feet): 5 Height (Inches): 2.00 Weight (Pounds): 211 Laboratory Tests Test 11/22/17 07:15 White Blood Count 6.5 K/UL (4.8-10.8) Red Blood Count 3.12 M/UL (4.20-5.40) L Hemoglobin 9.1 G/DL (12.0-16.0) L Hematocrit 28.5 % (37.0-47.0) L Mean Corpuscular Volume 91 FL (80-99) Mean Corpuscular Hemoglobin 29.2 PG (27.0-31.0) Mean Corpuscular Hemoglobin Concent 32.0 G/DL (32.0-36.0) Red Cell Distribution Width 13.3 % (11.6-14.8) Platelet Count 293 K/UL (150-450) Mean Platelet Volume 6.7 FL (6.5-10.1) Neutrophils (%) (Auto) 65.4 % (45.0-75.0) Lymphocytes (%) (Auto) 18.7 % (20.0-45.0) L Monocytes (%) (Auto) 13.8 % (1.0-10.0) H Eosinophils (%) (Auto) 1.3 % (0.0-3.0) Basophils (%) (Auto) 0.8 % (0.0-2.0) Sodium Level 141 MMOL/L (136-145) Potassium Level 3.7 MMOL/L (3.5-5.1) Chloride Level 107 MMOL/L (98-107) Carbon Dioxide Level 28 MMOL/L (21-32) Anion Gap 6 mmol/L (5-15) Blood Urea Nitrogen 24 mg/dL (7-18) H Creatinine 1.2 MG/DL (0.55-1.30) Estimat Glomerular Filtration Rate 54.9 mL/min (>60) Glucose Level 151 MG/DL (74-106) H Hemoglobin A1c 9.7 % (4.3-6.0) H Calcium Level 7.8 MG/DL (8.5-10.1) L Total Bilirubin 0.6 MG/DL (0.2-1.0) Aspartate Amino Transf (AST/SGOT) 30 U/L (15-37) Alanine Aminotransferase (ALT/SGPT) 26 U/L (12-78) Alkaline Phosphatase 91 U/L (46-116) Total Protein 6.6 G/DL (6.4-8.2) Albumin 2.2 G/DL (3.4-5.0) L Globulin 4.4 g/dL Albumin/Globulin Ratio 0.5 (1.0-2.7) L Triglycerides Level 108 MG/DL (30-150) Cholesterol Level 100 MG/DL (< 200) LDL Cholesterol 50 mg/dL (<100) HDL Cholesterol 34 MG/DL (40-60) L Cholesterol/HDL Ratio 2.9 (3.3-4.4) L Thyroid Stimulating Hormone (TSH) 0.917 uiU/mL (0.358-3.740) Current Medications Medications (Trade) Dose Ordered Sig/Helen Route PRN Reason Start Time Stop Time Status Last Admin Dose Admin Acetaminophen (Tylenol) 650 mg Q4H PRN ORAL Fever/Headache/Mild Pain 11/21/17 16:15 12/21/17 16:14 11/21/17 17:06 Albuterol/ Ipratropium (Albuterol/ Ipratropium) 3 ml Q4H PRN HHN Shortness of Breath 11/20/17 21:15 11/25/17 21:14 11/22/17 13:07 Albuterol/ Ipratropium (Albuterol/ Ipratropium) 3 ml Q6HRT HHN 11/22/17 19:00 11/27/17 18:59 Aspirin (ASA) 81 mg DAILY ORAL 11/21/17 09:00 12/19/17 08:59 11/22/17 09:18 Carvedilol (Coreg) 3.125 mg EVERY 12 HOURS ORAL 11/20/17 21:00 12/19/17 08:59 11/22/17 09:19 Ceftriaxone Sodium 1 gm/ Sodium Chloride 55 ml @ 110 mls/hr DAILY IVPB 11/21/17 09:00 11/26/17 08:59 11/22/17 09:18 Dextrose (Dextrose 50%) PRN PRN IV HYPOGLYCEMIA 11/21/17 13:30 12/19/17 13:29 Dextrose (Dextrose 50%) STAT PRN IV Hypoglycemia 11/21/17 05:00 12/19/17 04:59 Diltiazem HCl (Cardizem CD) 120 mg BID ORAL 11/21/17 18:00 12/19/17 08:59 12/26/17 09:19 Folic Acid (Folate) 1 mg DAILY ORAL 11/21/17 09:00 12/19/17 08:59 11/22/17 09:19 Glipizide (Glucotrol) 5 mg BIAC ORAL 11/21/17 06:30 12/19/17 16:29 11/22/17 06:41 Insulin Aspart (NovoLOG) BEFORE MEALS AND HS SUBQ 11/20/17 21:00 12/19/17 20:59 11/22/17 12:04 Insulin Aspart (NovoLOG) 10 units BEFORE MEALS AND HS SUBQ 11/20/17 21:00 12/19/17 20:59 11/22/17 12:04 Insulin Detemir (Levemir) 25 units Q12HR@0600,1800 SUBQ 11/21/17 06:00 12/19/17 18:59 11/22/17 06:42 Pantoprazole (Protonix) 40 mg ACBREAKFAST ORAL 11/21/17 06:30 12/20/17 06:29 11/22/17 06:41 Shanna Talbert M.D. Nov 22, 2017 14:12
[2017-11-22 16:00] VITALS: BP 152/78
[2017-11-22] MEDS ORDERED: Piperacillin/Tazobactam 3.375 GM in D5W 110 ML IVPB SCH (16:00)
[2017-11-22] MEDS: Piperacillin/Tazobactam 3.375 GM in D5W 55 ML IVPB SCH ×2 (16:09→16:34)
--- NOTE | 2017-11-22 16:55 | Diagnostic Imaging Report ---
Indication: Perimandibular abscess/cellulitis. Facial swelling. Chronic renal insufficiency Technique: MRI of the mandible region was performed at 1.5 Brina magnet. Pulse sequences obtained include multiplanar T1 fast spin echo and STIR. Gadolinium could not be given because of renal insufficiency. Comparison: None Findings: There is T2 hyperintense edema versus fluid/abscess just lateral to the right mandibular body measuring approximately 1.3 x 2.8 cm. (For example image 14 series 14). Evaluation is limited for 2 reasons. The first is lack of intravenous contrast which helps to define an abscess. The second reason-the study is degraded significantly by motion. Bone marrow signal within the mandible appears normal. There is also some hyperintense edema on the medial aspect of the mandibular body within the buccal mucosa. The airway appears relatively normal. IMPRESSION: Suspected right perimandibular abscess. This is suspected although the fluid collection is not well-defined on the current exam due to factors discussed above. No evidence of acute osteomyelitis.
--- NOTE | 2017-11-22 16:55 | Diagnostic Imaging Report ---
Indication: Chest pain Technique: Continuous helical transaxial imaging of the chest was obtained from the thoracic inlet to the upper abdomen. No intravenous contrast was administered. Coronal 2-D reformats were also obtained. Total Dose length Product (DLP): 714.[address] Dose Index Volume (CTDIvol): 23.44 mGy Comparison: none Findings: The lungs are clear. Aorta is mildly calcified. There is a rounded calcification at the anterior aspect of the caudate lobe between the caudate lobe and the lateral segment the left lobe of uncertain significance. The gallbladder is present and unremarkable in appearance. IMPRESSION: No acute findings in the chest. Atherosclerotic disease Chronic calcification near the caudate lobe of uncertain significance The CT scanner at [facility] is accredited by the [employer] and the scans are performed using dose optimization techniques as appropriate to a performed exam including Automatic Exposure control.
[2017-11-22] MEDS ORDERED: 1/2 NS 1000ml IV ONE (17:01)
--- NOTE | 2017-11-22 18:45 | Consultation ---
DATE OF CONSULTATION: INFECTIOUS DISEASE CONSULTATION REASON FOR CONSULTATION: Fever, possible pneumonia, rule out sepsis with dental infection. REQUESTING PHYSICIAN: Ramu Sutton M.D. HISTORY OF PRESENT ILLNESS: The patient is a 62-year-old female with past medical history of diabetes, poorly controlled and hypertension, was brought in to [facility] via paramedics with altered mental status. The patient was confused and delusional at that time. She was unclear whether she took her insulin or not. The patient was found to be hyperglycemic and hyperkalemic with tachycardia. So, she was started on insulin and intravenous ceftriaxone empiric coverage. Chest x-ray upon admission did not show any evidence of acute infiltration, but repeated chest x-ray was showing right middle to lower lobe consolidation suspicious for pneumonia. The patient spiked fever last night and with T-max of 102.0 degrees. She was also spiking fever prior to that up to 100. So, I was consulted by the primary provider team for antibiotics treatment and further evaluation of her fever and to rule out sepsis. The patient has been coughing phlegm over the last couple of days, was tinged with blood and her Coumadin was discontinued. She is complaining of right cheek swelling and pain with inability to drink or eat anything today. No headache or blurry vision. No shortness of breath, but she has cough and wheezing. PAST MEDICAL HISTORY: Significant for diabetes and hypertension. PAST SURGICAL HISTORY: Not on record. MEDICATIONS: She is on ceftriaxone 1 g IV q.24 h. For the rest of her medications, please refer to MAR. ALLERGIES: No known drug allergy. SOCIAL HISTORY: The patient lives at home with family. No recent drugs, tobacco, or alcohol. She is unemployed. FAMILY HISTORY: Negative, noncontributory. REVIEW OF SYSTEMS: A 14-point of system reviewed were all negative apart from the one I mentioned above in my History and Physical. PHYSICAL EXAMINATION: GENERAL: The patient middle-aged female, obese, lying in bed, awake, alert, oriented, not in distress, coughing and wheezing. VITAL SIGNS: Temperature 98.1 degrees, pulse 95, respirations 20, blood pressure 130/60 and saturation 95% on room air. HEENT: Normocephalic and atraumatic. Pupils reactive to lights equal. Moist oral mucosa. Right internal cheek ulcerations with significant swelling on the right cheek side and submandibular area, lymphadenopathy, painful to palpation, could not appreciate fluctuation. Skin intact on the right cheek with no apparent ulceration or redness. She has poor dental hygiene with decayed molar on the right posterior lower Vinod. No thrush. No exudate. NECK: Supple. No lymphadenopathy. No jugular venous distention. CARDIOVASCULAR: Regular rate and rhythm. No murmur or gallop. LUNGS: She had diffuse wheezing with poor air entry. Normal breathing effort. ABDOMEN: Soft, obese, nontender, and nondistended. Positive bowel sounds. No hepatosplenomegaly. No ascites. EXTREMITIES: No edema. No cyanosis. She has multiple bruises and hematoma on the upper extremities. LABORATORY AND DIAGNOSTIC DATA: Labs showed white count of 6.5, hemoglobin of 9.1 and platelet count of 293. BUN of 6 and creatinine of 1.2. Urinalysis showed negative nitrite, +1 leukocyte esterase, WBC 2 to 4, and moderate amount of bacteria. Microbiology, urine culture so far showed no growth. Imaging, head CT scan on admission showed no evidence of acute intracranial hemorrhage, mass effect, or cortical edema. Mild atrophy and nonspecific periventricular hypoattenuation suggestive of chronic ischemic microvascular changes. Chest x-ray on admission showed cardiomegaly with pulmonary vascular congestion. Repeated chest x-ray on the 11/21/2017 showed mild prominence of pulmonary vascularity, uncertain whether this is a pre-present congestive heart failure or due to poor inspiration. ASSESSMENT AND RECOMMENDATION: 1. Abscess of the right internal cheek, suspect due to dental infection, possible root canal, need to rule out bacteremia. We will send blood culture and order MRI of the face to evaluate the right cheek. We will switch ceftriaxone to Zosyn empiric coverage. The patient need dental evaluation as an outpatient for possible root canal infection. 2. Healthcare-acquired pneumonia with diffuse wheezing and infiltration on the right lower lobe, possible aspiration. We will send sputum culture and start Zosyn empiric coverage. Monitor chest x-ray. May need swallow evaluation. 3. Fever, suspect due to the above. We will send blood culture to rule out bacteremia and start Zosyn empiric coverage. 4. Dental infection with possible root canal infection. Need dental evaluation as an outpatient. We will start Zosyn for now, empiric coverage. 5. Diabetes mellitus, poorly controlled. Recommend tight glycemic control to keep blood glucose between 100 to 140. Thank you for the consultation. Infectious Disease will continue to follow. Shanna Talbert M.D. DR: RHETT JOB#: [id number] CC:
[2017-11-22 20:00] VITALS: BP 135/60
[2017-11-22] MEDS: Albuterol/Ipratropium 3ml neb HHN SCH (21:14)
[2017-11-23] VITALS (7 sets, daily range): BP systolic 130–146; BP diastolic 59–70
[2017-11-23] MEDS: Piperacillin/Tazobactam 3.375 GM in D5W 55 ML IVPB SCH ×3 (00:07→16:02)
[2017-11-23] MEDS: Albuterol/Ipratropium 3ml neb HHN SCH ×4 (01:00→20:16)
[2017-11-23] MEDS: NovoLOG Insulin Flexpen SUBQ SCH ×9 (06:30→22:03)
[2017-11-23] MEDS: GlipiZIDE 5mg tab ORAL SCH ×2 (06:45→16:02)
--- NOTE | 2017-11-23 07:02 | General Progress Note ---
Assessment/Plan Assessment/Plan Acute renal insufficiency with hyperkalemia, resolving hypertension coagulopathy with significantly elevated INR diabetes, poorly-controlled altered mental status, resolved no fever CT chest neg MRI face w R perimandibular abscess BS per endocrine (Dr Piper) ID notes appreciated HHN abx called ENT Subjective Constitutional: Reports: malaise, weakness, Denies: fever Respiratory: Reports: sputum Allergies: Coded Allergies: No Known Allergies (Unverified , 09/09/16) Objective Last 24 Hour Vital Signs Date Time Temp Pulse Resp B/P (MAP) Pulse Ox O2 Delivery O2 Flow Rate FiO2 11/23/17 06:12 98.6 90 20 135/60 99 Room Air 21 11/23/17 04:00 91 11/23/17 04:00 98.6 90 20 135/60 99 Room Air 11/23/17 04:00 98.6 90 20 135/60 99 Room Air 21 11/23/17 01:00 Room Air 21 11/23/17 01:00 Room Air 21 11/23/17 00:00 98.8 92 21 130/62 99 Room Air 11/23/17 00:00 93 11/22/17 21:40 93 135/60 11/22/17 20:00 97.9 93 20 135/60 99 Room Air 11/22/17 20:00 89 11/22/17 19:29 72 18 97 Room Air 11/22/17 19:20 84 20 93 Room Air 11/22/17 18:17 83 153/78 11/22/17 16:00 98.7 89 18 152/78 100 11/22/17 13:14 78 20 98 Room Air 11/22/17 13:07 80 20 96 Room Air 21 11/22/17 12:00 98.1 95 20 130/60 95 11/22/17 12:00 89 11/22/17 09:19 92 140/75 11/22/17 09:19 92 140/75 11/22/17 08:00 96.8 95 20 148/75 95 11/22/17 08:00 95 Intake and Output 11/22/17 11/23/17 19:00 07:00 Intake Total 82.50 ml Balance 82.50 ml IV Total 82.50 ml # Voids 2 Laboratory Tests 11/22/17 07:15: White Blood Count 6.5, Red Blood Count 3.12L, Hemoglobin 9.1L, Hematocrit 28.5L , Mean Corpuscular Volume 91, Mean Corpuscular Hemoglobin 29.2, Mean Corpuscular Hemoglobin Concent 32.0, Red Cell Distribution Width 13.3, Platelet Count 293, Mean Platelet Volume 6.7, Neutrophils (%) (Auto) 65.4, Lymphocytes (% ) (Auto) 18.7L, Monocytes (%) (Auto) 13.8H, Eosinophils (%) (Auto) 1.3, Basophils (%) (Auto) 0.8, Sodium Level 141, Potassium Level 3.7, Chloride Level 107, Carbon Dioxide Level 28, Anion Gap 6, Blood Urea Nitrogen 24H, Creatinine 1.2, Estimat Glomerular Filtration Rate 54.9, Glucose Level 151H, Hemoglobin A1c 9.7H, Calcium Level 7.8L, Total Bilirubin 0.6, Aspartate Amino Transf (AST/ SGOT) 30, Alanine Aminotransferase (ALT/SGPT) 26, Alkaline Phosphatase 91, Total Protein 6.6, Albumin 2.2L, Globulin 4.4, Albumin/Globulin Ratio 0.5L, Triglycerides Level 108, Cholesterol Level 100, LDL Cholesterol 50, HDL Cholesterol 34L, Cholesterol/HDL Ratio 2.9L, Thyroid Stimulating Hormone (TSH) 0.917 Height (Feet): 5 Height (Inches): 2.00 Weight (Pounds): 211 General Appearance: no apparent distress, obese Neck: non-tender, other - R perimandibular abscess Cardiovascular: normal rate Respiratory/Chest: expiratory wheezing MAISHA BEDOYA Nov 23, 2017 07:02
[2017-11-23] MEDS: Levemir Flexpen SUBQ SCH ×2 (07:58→17:43)
[2017-11-23] MEDS: Aspirin Baby 81mg ORAL SCH (08:34)
[2017-11-23] MEDS: dilTIAZem HCl CD 120mg cap ORAL SCH ×2 (08:38→17:42)
[2017-11-23 08:48] LABS: BASOPHILS % (AUTO) 0.6 % (0.0-2.0); EOSINOPHILS % (AUTO) 1.3 % (0.0-3.0); HEMATOCRIT 28.9 % (37.0-47.0); HEMOGLOBIN 9.1 G/DL (12.0-16.0); MEAN CORPUSCULAR VOLUME 91 FL (80-99); MONOCYTES % (AUTO) 11.6 % (1.0-10.0); NEUTROPHILS % (AUTO) 67.6 % (45.0-75.0); PLATELET COUNT 301 K/UL (150-450); RED BLOOD COUNT 3.17 M/UL (4.20-5.40); RED CELL DISTRIBUTION WIDTH 13.6 % (11.6-14.8)
[2017-11-23 08:56] LABS: ALANINE AMINOTRANSFERASE 23 U/L (12-78); ALBUMIN 2.1 G/DL (3.4-5.0); ALBUMIN/GLOBULIN RATIO 0.5 (1.0-2.7); ALKALINE PHOSPHATASE 88 U/L (46-116); ANION GAP 6 mmol/L (5-15); ASPARTATE AMINO TRANSFERASE 26 U/L (15-37); BILIRUBIN,TOTAL 0.7 MG/DL (0.2-1.0); BLOOD UREA NITROGEN 19 mg/dL (7-18); CALCIUM 7.7 MG/DL (8.5-10.1); CARBON DIOXIDE 28 MMOL/L (21-32); CHLORIDE 104 MMOL/L (98-107); CREATININE 1.2 MG/DL (0.55-1.30); POTASSIUM 4.1 MMOL/L (3.5-5.1); SODIUM 138 MMOL/L (136-145)
[2017-11-23] MEDS: cefTRIAXone 1 GM in NS 55 ML IVPB SCH (11:21)
--- NOTE | 2017-11-23 13:16 | Physician Query ---
PLEASE COMPLETE DOCUMENT BEFORE SIGNING Dear MAISHA Recinos Date: 11/23/17 Manager Solution/CDS Name: Cindy Gamez Manager Solution / CDS Phone # [phone] Exercise your independent professional judgment when responding to query. Question asked do not imply a particular answer is desired/expected. Clinical Documentation States: "Altered Mental Status" Documented in Progress Note (11/21/17) Acute renal insufficiency with hyperkalemia, resolving diabetes, poorly-controlled Clinical Findings Show: Hemoglobin - 6.8 BUN -94, 97, 54 Creatinine - 3.6, 2.9, 1.8 Glucose level - 412, 499, 841 Please indicate the nature and chronicity of the condition below: [x] Metabolic Encephalopathy [] Toxic Encephalopathy [] Toxic - Metabolic Encephalopathy [] Progressive Encephalopathy [] Encephalopathy, Other [] Other: [] Not Applicable Severity [x] Acute [] Chronic [] Acute on Chronic [] Unable to determine Condition Present on Admission: [x] Yes [] No []Clinically Undeterminable Please also document in your Progress Notes and/or Discharge Summary and indicate if the condition was present on admission. MAISHA BEDOYA MD Date/Time MTDD
--- NOTE | 2017-11-23 15:24 | Infectious Diseases Prog Note ---
Assessment/Plan Problems: (1) Mandibular abscess Assessment & Plan: await blood culture to rule out bactermia , continue zosyn empiric coverage, needs dental eval as an out patient for root canal infection , and ENT eval for possible I&D (2) HCAP (healthcare-associated pneumonia) Assessment & Plan: with diffuse wheezing , will send sputum culture and start zosyn empiric coverage , monitor CXR (3) Fever Assessment & Plan: suspect due to the above , await blood culture to rule out bacteremia and continue zosyn empiric coverage (4) Dental infection Assessment & Plan: with root canal infection, needs dental eval as an outpatient , continue zosyn (5) Diabetes mellitus Assessment & Plan: recommend tight glycemic control to keep blood glucose between 100-140 Subjective Constitutional: Reports: fatigue HEENT: Reports: congestion, other - right cheeck swelling with pain Respiratory: Reports: dry cough Breasts: Reports: no symptoms Cardiovascular: Reports: no symptoms Gastrointestinal/Abdominal: Reports: no symptoms Genitourinary: Reports: no symptoms Neurologic: Reports: no symptoms Psychiatric: Reports: no symptoms Skin: Reports: no symptoms Endocrine: Reports: no symptoms Hematologic: Reports: no symptoms Musculoskeletal: Reports: no symptoms Allergies: Coded Allergies: No Known Allergies (Unverified , 09/09/16) Objective Vital Signs Last 24 Hour Vital Signs Date Time Temp Pulse Resp B/P (MAP) Pulse Ox O2 Delivery O2 Flow Rate FiO2 11/23/17 13:39 87 20 100 Room Air 11/23/17 13:35 88 20 98 Room Air 11/23/17 12:19 98.4 11/23/17 12:00 99.1 99 18 143/70 100 Room Air 11/23/17 08:38 99 138/64 11/23/17 08:34 99 138/64 11/23/17 08:00 101 11/23/17 08:00 97.7 99 18 138/64 100 Room Air 11/23/17 07:51 109 20 100 Room Air 11/23/17 07:48 108 20 98 Room Air 11/23/17 06:12 98.6 90 20 135/60 99 Room Air 21 11/23/17 04:00 91 11/23/17 04:00 98.6 90 20 135/60 99 Room Air 11/23/17 04:00 98.6 90 20 135/60 99 Room Air 21 11/23/17 01:00 Room Air 21 11/23/17 01:00 Room Air 21 11/23/17 00:00 98.8 92 21 130/62 99 Room Air 11/23/17 00:00 93 11/22/17 21:40 93 135/60 11/22/17 20:00 97.9 93 20 135/60 99 Room Air 11/22/17 20:00 89 11/22/17 19:29 72 18 97 Room Air 21 11/22/17 19:20 84 20 93 Room Air 21 11/22/17 18:17 83 153/78 11/22/17 16:00 98.7 89 18 152/78 100 Height (Feet): 5 Height (Inches): 2.00 Weight (Pounds): 211 General Appearance: WD/WN, no acute distress HEENT: atraumatic, anicteric, mucous membranes moist, PERRL, other - right mandibular angle swelling with mass like , tender to palpation Respiratory/Chest: chest wall non-tender, lungs clear, normal breath sounds, no respiratory distress, no accessory muscle use Cardiovascular: normal peripheral pulses, normal rate, regular rhythm, no gallop/murmur, no JVD Abdomen: normal bowel sounds, soft, non tender, no organomegaly, non distended , no mass, no scars Extremities: no cyanosis, no clubbing Skin: no rash, no lesions, no ulcers Neurologic/Psychiatric: alert, oriented x 3, responsive Lymphatic: no neck adenopathy, no groin adenopathy Musculoskeletal: normal muscle bulk, no effusion Microbiology Date/Time Source Procedure Growth Status 11/22/17 14:00 Sputum Expectorated Gram Stain - Final Resulted 11/22/17 14:00 Sputum Expectorated Sputum Culture - Preliminary NO GROWTH Resulted Laboratory Tests Test 11/23/17 08:30 White Blood Count 8.0 K/UL (4.8-10.8) Red Blood Count 3.17 M/UL (4.20-5.40) L Hemoglobin 9.1 G/DL (12.0-16.0) L Hematocrit 28.9 % (37.0-47.0) L Mean Corpuscular Volume 91 FL (80-99) Mean Corpuscular Hemoglobin 28.9 PG (27.0-31.0) Mean Corpuscular Hemoglobin Concent 31.6 G/DL (32.0-36.0) L Red Cell Distribution Width 13.6 % (11.6-14.8) Platelet Count 301 K/UL (150-450) Mean Platelet Volume 6.6 FL (6.5-10.1) Neutrophils (%) (Auto) 67.6 % (45.0-75.0) Lymphocytes (%) (Auto) 19.0 % (20.0-45.0) L Monocytes (%) (Auto) 11.6 % (1.0-10.0) H Eosinophils (%) (Auto) 1.3 % (0.0-3.0) Basophils (%) (Auto) 0.6 % (0.0-2.0) Sodium Level 138 MMOL/L (136-145) Potassium Level 4.1 MMOL/L (3.5-5.1) Chloride Level 104 MMOL/L (98-107) Carbon Dioxide Level 28 MMOL/L (21-32) Anion Gap 6 mmol/L (5-15) Blood Urea Nitrogen 19 mg/dL (7-18) H Creatinine 1.2 MG/DL (0.55-1.30) Estimat Glomerular Filtration Rate 54.9 mL/min (>60) Glucose Level 192 MG/DL (74-106) H Calcium Level 7.7 MG/DL (8.5-10.1) L Total Bilirubin 0.7 MG/DL (0.2-1.0) Aspartate Amino Transf (AST/SGOT) 26 U/L (15-37) Alanine Aminotransferase (ALT/SGPT) 23 U/L (12-78) Alkaline Phosphatase 88 U/L (46-116) Total Protein 6.5 G/DL (6.4-8.2) Albumin 2.1 G/DL (3.4-5.0) L Globulin 4.4 g/dL Albumin/Globulin Ratio 0.5 (1.0-2.7) L Current Medications Medications (Trade) Dose Ordered Sig/Helen Route PRN Reason Start Time Stop Time Status Last Admin Dose Admin Acetaminophen (Tylenol) 650 mg Q4H PRN ORAL Fever/Headache/Mild Pain 11/21/17 16:15 12/21/17 16:14 11/23/17 11:20 Albuterol/ Ipratropium (Albuterol/ Ipratropium) 3 ml Q4H PRN HHN Shortness of Breath 11/20/17 21:15 11/25/17 21:14 11/22/17 13:07 Albuterol/ Ipratropium (Albuterol/ Ipratropium) 3 ml Q6HRT HHN 11/22/17 19:00 11/27/17 18:59 11/23/17 13:35 Aspirin (ASA) 81 mg DAILY ORAL 11/21/17 09:00 12/19/17 08:59 11/23/17 08:34 Carvedilol (Coreg) 3.125 mg EVERY 12 HOURS ORAL 11/20/17 21:00 12/19/17 08:59 11/23/17 08:34 Ceftriaxone Sodium 1 gm/ Sodium Chloride 55 ml @ 110 mls/hr DAILY IVPB 11/21/17 09:00 11/26/17 08:59 11/23/17 11:21 Dextrose (Dextrose 50%) PRN PRN IV HYPOGLYCEMIA 11/21/17 13:30 12/19/17 13:29 Dextrose (Dextrose 50%) STAT PRN IV Hypoglycemia 11/21/17 05:00 12/19/17 04:59 Diltiazem HCl (Cardizem CD) 120 mg BID ORAL 11/21/17 18:00 12/19/17 08:59 11/23/17 08:38 Folic Acid (Folate) 1 mg DAILY ORAL 11/21/17 09:00 12/19/17 08:59 11/23/17 08:34 Glipizide (Glucotrol) 5 mg BIAC ORAL 11/21/17 06:30 12/19/17 16:29 11/23/17 06:45 Insulin Aspart (NovoLOG) BEFORE MEALS AND HS SUBQ 11/20/17 21:00 12/19/17 20:59 11/23/17 10:43 Insulin Aspart (NovoLOG) 10 units BEFORE MEALS AND HS SUBQ 11/20/17 21:00 12/19/17 20:59 11/23/17 10:44 Insulin Detemir (Levemir) 25 units Q12HR@0600,1800 SUBQ 11/21/17 06:00 12/19/17 18:59 11/23/17 07:58 Pantoprazole (Protonix) 40 mg ACBREAKFAST ORAL 11/21/17 06:30 12/20/17 06:29 11/23/17 06:45 Piperacillin Sod/ Tazobactam Sod 3.375 gm/Dextrose 55 ml @ 13.75 mls/ hr Q8H IVPB 11/22/17 16:00 11/29/17 15:59 11/23/17 08:33 Shanna Talbert M.D. Nov 23, 2017 15:24
[2017-11-24] VITALS: BP 140/62
[2017-11-24] MEDS: Piperacillin/Tazobactam 3.375 GM in D5W 55 ML IVPB SCH ×3 (00:30→16:21)
[2017-11-24] MEDS: Albuterol/Ipratropium 3ml neb HHN SCH ×4 (01:00→19:13)
[2017-11-24 04:00] VITALS: BP 143/53
[2017-11-24] MEDS: Levemir Flexpen SUBQ SCH ×2 (05:28→17:41)
[2017-11-24] MEDS: GlipiZIDE 5mg tab ORAL SCH ×2 (06:38→16:21)
[2017-11-24] MEDS: NovoLOG Insulin Flexpen SUBQ SCH ×8 (06:39→21:50)
[2017-11-24 08:00] VITALS: BP 149/90
[2017-11-24 08:12] LABS: BASOPHILS % (AUTO) 0.7 % (0.0-2.0); EOSINOPHILS % (AUTO) 1.7 % (0.0-3.0); HEMATOCRIT 27.6 % (37.0-47.0); HEMOGLOBIN 8.8 G/DL (12.0-16.0); LYMPHOCYTES % (AUTO) 24.2 % (20.0-45.0); MEAN CORPUSCULAR VOLUME 91 FL (80-99); NEUTROPHILS % (AUTO) 63.5 % (45.0-75.0); PLATELET COUNT 316 K/UL (150-450); RED BLOOD COUNT 3.03 M/UL (4.20-5.40); RED CELL DISTRIBUTION WIDTH 13.9 % (11.6-14.8); WHITE BLOOD COUNT 8.9 K/UL (4.8-10.8)
[2017-11-24] MEDS: dilTIAZem HCl CD 120mg cap ORAL SCH ×2 (08:33→17:39)
[2017-11-24] MEDS: Aspirin Baby 81mg ORAL SCH (08:34)
--- NOTE | 2017-11-24 10:46 | Diagnostic Imaging Report ---
APPROVED REPORT CPT Code: 67215 Present Symptoms Comments: PAIN BILATERAL: Imaging reveals a patent deep venous system bilaterally. There is no evidence of thrombus within the femoral, popliteal or tibial segments. The greater saphenous veins are also within normal limits. Doppler indicates normal spontaneous flow within these segments.
[2017-11-24 12:00] VITALS: BP 138/74
--- NOTE | 2017-11-24 15:24 | Infectious Diseases Prog Note ---
Assessment/Plan Problems: (1) Mandibular abscess Assessment & Plan: await blood culture to rule out bactermia , continue zosyn empiric coverage, needs dental eval as an out patient for root canal infection , and ENT eval for possible I&D of the right mandibular abscess (2) HCAP (healthcare-associated pneumonia) Assessment & Plan: with diffuse wheezing , await sputum culture , continue zosyn empiric coverage , monitor CXR (3) Fever Assessment & Plan: suspect due to the above , await blood culture to rule out bacteremia and continue zosyn empiric coverage (4) Dental infection Assessment & Plan: with root canal infection, needs dental eval as an outpatient , continue zosyn (5) Diabetes mellitus Assessment & Plan: recommend tight glycemic control to keep blood glucose between 100-140 Subjective Constitutional: Reports: fatigue HEENT: Reports: congestion, other - right mandibular swelling and pain Respiratory: Reports: productive cough Breasts: Reports: no symptoms Cardiovascular: Reports: no symptoms Gastrointestinal/Abdominal: Reports: no symptoms Genitourinary: Reports: no symptoms Neurologic: Reports: no symptoms Psychiatric: Reports: no symptoms Skin: Reports: no symptoms Endocrine: Reports: no symptoms Hematologic: Reports: no symptoms Allergies: Coded Allergies: No Known Allergies (Unverified , 09/09/16) Objective Vital Signs Last 24 Hour Vital Signs Date Time Temp Pulse Resp B/P (MAP) Pulse Ox O2 Delivery O2 Flow Rate FiO2 11/24/17 13:16 80 20 98 Room Air 11/24/17 13:06 88 20 94 Room Air 11/24/17 12:00 98.2 95 20 138/74 96 11/24/17 08:49 95 18 98 Room Air 11/24/17 08:36 96 18 97 Room Air 11/24/17 08:33 97 149/90 11/24/17 08:32 97 149/90 11/24/17 08:00 94 11/24/17 08:00 98.6 97 18 149/90 100 11/24/17 04:00 95 11/24/17 04:00 99.9 92 20 143/53 98 11/24/17 01:25 Room Air 21 11/24/17 01:25 Room Air 21 11/24/17 00:00 99.1 97 20 140/62 94 11/23/17 23:48 95 11/23/17 20:43 100 146/59 11/23/17 20:00 95 11/23/17 20:00 99.1 100 20 146/59 99 11/23/17 19:26 92 20 99 Room Air 21 11/23/17 19:14 87 18 97 Room Air 21 11/23/17 17:42 99 133/67 11/23/17 16:00 98.2 99 18 133/67 98 Room Air 11/23/17 16:00 98 Height (Feet): 5 Height (Inches): 2.00 Weight (Pounds): 211 General Appearance: WD/WN, no acute distress HEENT: atraumatic, anicteric, mucous membranes moist, PERRL, EOMI, pharynx normal, supple, no JVD, other - right mandibular swelling with tenderness Respiratory/Chest: chest wall non-tender, no respiratory distress, no accessory muscle use, decreased breath sounds, expiratory wheezing Cardiovascular: normal peripheral pulses, normal rate, regular rhythm, no gallop/murmur, no JVD Abdomen: normal bowel sounds, soft, non tender, no organomegaly, non distended , no mass, no scars Extremities: no cyanosis, no clubbing Skin: no rash, no lesions, no ulcers Neurologic/Psychiatric: alert, responsive Lymphatic: no neck adenopathy, no groin adenopathy Microbiology Date/Time Source Procedure Growth Status 11/22/17 22:55 Blood Blood Culture - Preliminary NO GROWTH AFTER 24 HOURS Resulted 11/22/17 22:50 Blood Blood Culture - Preliminary NO GROWTH AFTER 24 HOURS Resulted 11/22/17 14:00 Sputum Expectorated Gram Stain - Final Complete 11/22/17 14:00 Sputum Expectorated Sputum Culture - Final NORMAL UPPER RESPIRATORY REBECA PRESENT Complete Laboratory Tests Test 11/24/17 07:05 White Blood Count 8.9 K/UL (4.8-10.8) Red Blood Count 3.03 M/UL (4.20-5.40) L Hemoglobin 8.8 G/DL (12.0-16.0) L Hematocrit 27.6 % (37.0-47.0) L Mean Corpuscular Volume 91 FL (80-99) Mean Corpuscular Hemoglobin 29.0 PG (27.0-31.0) Mean Corpuscular Hemoglobin Concent 31.9 G/DL (32.0-36.0) L Red Cell Distribution Width 13.9 % (11.6-14.8) Platelet Count 316 K/UL (150-450) Mean Platelet Volume 6.1 FL (6.5-10.1) L Neutrophils (%) (Auto) 63.5 % (45.0-75.0) Lymphocytes (%) (Auto) 24.2 % (20.0-45.0) Monocytes (%) (Auto) 10.0 % (1.0-10.0) Eosinophils (%) (Auto) 1.7 % (0.0-3.0) Basophils (%) (Auto) 0.7 % (0.0-2.0) Current Medications Medications (Trade) Dose Ordered Sig/Helen Route PRN Reason Start Time Stop Time Status Last Admin Dose Admin Acetaminophen (Tylenol) 650 mg Q4H PRN ORAL Fever/Headache/Mild Pain 11/21/17 16:15 12/21/17 16:14 11/23/17 11:20 Albuterol/ Ipratropium (Albuterol/ Ipratropium) 3 ml Q4H PRN HHN Shortness of Breath 11/20/17 21:15 11/25/17 21:14 11/22/17 13:07 Albuterol/ Ipratropium (Albuterol/ Ipratropium) 3 ml Q6HRT HHN 11/22/17 19:00 11/27/17 18:59 11/24/17 13:06 Aspirin (ASA) 81 mg DAILY ORAL 11/21/17 09:00 12/19/17 08:59 11/24/17 08:34 Carvedilol (Coreg) 3.125 mg EVERY 12 HOURS ORAL 11/20/17 21:00 12/19/17 08:59 11/24/17 08:32 Dextrose (Dextrose 50%) STAT PRN IV Hypoglycemia 11/21/17 05:00 12/19/17 04:59 Diltiazem HCl (Cardizem CD) 120 mg BID ORAL 11/21/17 18:00 12/19/17 08:59 11/24/17 08:33 Folic Acid (Folate) 1 mg DAILY ORAL 11/21/17 09:00 12/19/17 08:59 11/24/17 08:34 Glipizide (Glucotrol) 5 mg BIAC ORAL 11/21/17 06:30 12/19/17 16:29 11/24/17 06:38 Insulin Aspart (NovoLOG) BEFORE MEALS AND HS SUBQ 11/20/17 21:00 12/19/17 20:59 11/24/17 11:59 Insulin Aspart (NovoLOG) 10 units BEFORE MEALS AND HS SUBQ 11/20/17 21:00 12/19/17 20:59 11/24/17 11:59 Insulin Detemir (Levemir) 25 units Q12HR@0600,1800 SUBQ 11/21/17 06:00 12/19/17 18:59 11/24/17 05:28 Pantoprazole (Protonix) 40 mg ACBREAKFAST ORAL 11/21/17 06:30 12/20/17 06:29 11/24/17 06:37 Piperacillin Sod/ Tazobactam Sod 3.375 gm/Dextrose 55 ml @ 13.75 mls/ hr Q8H IVPB 11/22/17 16:00 11/29/17 15:59 11/24/17 08:26 Shanna Talbert M.D. Nov 24, 2017 15:24
[2017-11-24 16:00] VITALS: BP 120/57
--- NOTE | 2017-11-24 16:47 | General Progress Note ---
Assessment/Plan Assessment/Plan Acute renal insufficiency with hyperkalemia, resolving hypertension coagulopathy with significantly elevated INR diabetes, poorly-controlled altered mental status, resolved R mandibular infection no fever MRI face w R perimandibular abscess BS per endocrine (Dr Piper) ID notes appreciated HHN abx - change to PO DC plan tomorrow Subjective HEENT: Reports: mouth pain Allergies: Coded Allergies: No Known Allergies (Unverified , 09/09/16) Objective Last 24 Hour Vital Signs Date Time Temp Pulse Resp B/P (MAP) Pulse Ox O2 Delivery O2 Flow Rate FiO2 11/24/17 13:16 80 20 98 Room Air 21 11/24/17 13:06 88 20 94 Room Air 21 11/24/17 12:00 98.2 95 20 138/74 96 11/24/17 08:49 95 18 98 Room Air 21 11/24/17 08:36 96 18 97 Room Air 21 11/24/17 08:33 97 149/90 11/24/17 08:32 97 149/90 11/24/17 08:00 94 11/24/17 08:00 98.6 97 18 149/90 100 11/24/17 04:00 95 11/24/17 04:00 99.9 92 20 143/53 98 11/24/17 01:25 Room Air 11/24/17 01:25 Room Air 21 11/24/17 00:00 99.1 97 20 140/62 94 11/23/17 23:48 95 11/23/17 20:43 100 146/59 11/23/17 20:00 95 11/23/17 20:00 99.1 100 20 146/59 99 11/23/17 19:26 92 20 99 Room Air 11/23/17 19:14 87 18 97 Room Air 11/23/17 17:42 99 133/67 Intake and Output 11/23/17 11/24/17 19:00 07:00 Intake Total 1900.00 ml 55.00 ml Output Total 400 ml Balance 1500.00 ml 55.00 ml Intake Oral 360 ml IV Total 1540.00 ml 55.00 ml Output Urine Total 400 ml # Voids 1 # Bowel Movements 1 Laboratory Tests 11/24/17 07:05: White Blood Count 8.9, Red Blood Count 3.03L, Hemoglobin 8.8L, Hematocrit 27.6L , Mean Corpuscular Volume 91, Mean Corpuscular Hemoglobin 29.0, Mean Corpuscular Hemoglobin Concent 31.9L, Red Cell Distribution Width 13.9, Platelet Count 316, Mean Platelet Volume 6.1L, Neutrophils (%) (Auto) 63.5, Lymphocytes (%) (Auto) 24.2, Monocytes (%) (Auto) 10.0, Eosinophils (%) (Auto) 1.7, Basophils (%) (Auto) 0.7 Height (Feet): 5 Height (Inches): 2.00 Weight (Pounds): 211 General Appearance: no apparent distress, obese EENT: other - R cheek swelling, tender Cardiovascular: normal rate Respiratory/Chest: lungs clear MAISHA BEDOYA Nov 24, 2017 16:46
[2017-11-24 20:27] VITALS: BP 138/58
[2017-11-25 00:15] VITALS: BP 135/67
[2017-11-25] MEDS: Piperacillin/Tazobactam 3.375 GM in D5W 55 ML IVPB SCH ×2 (01:03→08:59)
[2017-11-25] MEDS: Albuterol/Ipratropium 3ml neb HHN SCH ×3 (01:25→13:48)
[2017-11-25 04:15] VITALS: BP 146/65
[2017-11-25] MEDS: GlipiZIDE 5mg tab ORAL SCH ×2 (06:43→18:11)
[2017-11-25] MEDS: Levemir Flexpen SUBQ SCH (07:07)
[2017-11-25] MEDS: NovoLOG Insulin Flexpen SUBQ SCH ×6 (07:08→17:53)
[2017-11-25 08:00] VITALS: BP 131/41
[2017-11-25 08:22] LABS: BASOPHILS % (AUTO) 0.4 % (0.0-2.0); EOSINOPHILS % (AUTO) 2.2 % (0.0-3.0); HEMATOCRIT 27.7 % (37.0-47.0); LYMPHOCYTES % (AUTO) 21.6 % (20.0-45.0); MEAN CORPUSCULAR VOLUME 91 FL (80-99); MONOCYTES % (AUTO) 9.1 % (1.0-10.0); NEUTROPHILS % (AUTO) 66.7 % (45.0-75.0); PLATELET COUNT 355 K/UL (150-450); RED BLOOD COUNT 3.03 M/UL (4.20-5.40); RED CELL DISTRIBUTION WIDTH 13.8 % (11.6-14.8); WHITE BLOOD COUNT 8.9 K/UL (4.8-10.8)
[2017-11-25 08:34] LABS: ALANINE AMINOTRANSFERASE 19 U/L (12-78); ALBUMIN 2.2 G/DL (3.4-5.0); ALBUMIN/GLOBULIN RATIO 0.5 (1.0-2.7); ALKALINE PHOSPHATASE 83 U/L (46-116); ANION GAP 5 mmol/L (5-15); ASPARTATE AMINO TRANSFERASE 26 U/L (15-37); BILIRUBIN,TOTAL 0.8 MG/DL (0.2-1.0); BLOOD UREA NITROGEN 18 mg/dL (7-18); CARBON DIOXIDE 27 MMOL/L (21-32); CHLORIDE 105 MMOL/L (98-107); CREATININE 1.3 MG/DL (0.55-1.30); POTASSIUM 4.4 MMOL/L (3.5-5.1); SODIUM 137 MMOL/L (136-145)
[2017-11-25] MEDS: Aspirin Baby 81mg ORAL SCH (08:59)
[2017-11-25] MEDS: dilTIAZem HCl CD 120mg cap ORAL SCH (09:01)
[2017-11-25 12:00] VITALS: BP 142/61
[2017-11-25] MEDS ORDERED: AUGMENTIN 875-1 EAC1 ORAL (13:48)
[2017-11-25] MEDS ORDERED: LEVEMIR FL100 UNIT/1 SUBQ (13:48)
--- NOTE | 2017-11-25 14:30 | Infectious Diseases Prog Note ---
Assessment/Plan Problems: (1) Mandibular abscess Assessment & Plan: blood culture remains negative which rule out bactermia , continue zosyn empiric coverage, and may switch to oral augmantin for two more weeks , pending dental eval as an out patient for root canal infection , and ENT eval for possible I&D of the right mandibular abscess. recommend repeated image if no resolution with two weeks on antibiotics (2) HCAP (healthcare-associated pneumonia) Assessment & Plan: with diffuse wheezing , sputum culture showed no growth , continue zosyn empiric coverage , may switch to oral Augmentin for two more weeks . monitor CXR (3) Fever Assessment & Plan: suspect due to the above , await blood culture to rule out bacteremia and continue zosyn empiric coverage (4) Dental infection Assessment & Plan: with root canal infection, needs dental eval as an outpatient , continue zosyn for now, and switch to oral augmantin when discharged (5) Diabetes mellitus Assessment & Plan: recommend tight glycemic control to keep blood glucose between 100-140 Subjective Constitutional: Reports: no symptoms HEENT: Reports: other - right cheek swelling Respiratory: Reports: no symptoms Breasts: Reports: no symptoms Cardiovascular: Reports: no symptoms Gastrointestinal/Abdominal: Reports: no symptoms Genitourinary: Reports: no symptoms Neurologic: Reports: no symptoms Psychiatric: Reports: no symptoms Skin: Reports: no symptoms Endocrine: Reports: no symptoms Allergies: Coded Allergies: No Known Allergies (Unverified , 09/09/16) Objective Vital Signs Last 24 Hour Vital Signs Date Time Temp Pulse Resp B/P (MAP) Pulse Ox O2 Delivery O2 Flow Rate FiO2 11/25/17 13:56 89 19 98 Room Air 11/25/17 13:48 88 18 98 Room Air 11/25/17 09:01 95 137/61 11/25/17 09:01 95 137/61 11/25/17 08:35 94 20 98 Room Air 11/25/17 08:30 92 18 95 Room Air 11/25/17 08:00 98.2 91 20 131/41 100 Room Air 11/25/17 08:00 90 11/25/17 04:15 97.3 85 20 146/65 96 Room Air 11/25/17 04:00 86 11/25/17 01:36 86 20 98 Room Air 11/25/17 01:25 76 18 96 Room Air 21 11/25/17 00:15 98.4 89 20 135/67 100 Room Air 11/25/17 00:00 94 11/24/17 21:50 90 138/58 11/24/17 20:27 98.0 90 20 138/58 97 Room Air 11/24/17 20:00 87 11/24/17 19:27 85 20 98 Room Air 21 11/24/17 19:13 84 20 95 Room Air 21 11/24/17 17:39 84 120/57 11/24/17 16:00 99.0 84 18 120/57 95 11/24/17 16:00 92 Height (Feet): 5 Height (Inches): 2.00 Weight (Pounds): 211 General Appearance: WD/WN, no acute distress HEENT: normocephalic, atraumatic, anicteric, mucous membranes moist Respiratory/Chest: chest wall non-tender, lungs clear, normal breath sounds, no respiratory distress, no accessory muscle use Cardiovascular: normal peripheral pulses, normal rate, regular rhythm, no gallop/murmur, no JVD Abdomen: normal bowel sounds, soft, non tender, no organomegaly, non distended , no mass, no scars Extremities: no cyanosis, no clubbing Skin: no rash, no lesions, no ulcers Neurologic/Psychiatric: alert, oriented x 3 Lymphatic: no neck adenopathy, no groin adenopathy Musculoskeletal: normal muscle bulk, no effusion Microbiology Date/Time Source Procedure Growth Status 11/22/17 22:55 Blood Blood Culture - Preliminary NO GROWTH AFTER 48 HOURS Resulted 11/22/17 22:50 Blood Blood Culture - Preliminary NO GROWTH AFTER 48 HOURS Resulted Laboratory Tests Test 11/25/17 07:45 White Blood Count 8.9 K/UL (4.8-10.8) Red Blood Count 3.03 M/UL (4.20-5.40) L Hemoglobin 9.0 G/DL (12.0-16.0) L Hematocrit 27.7 % (37.0-47.0) L Mean Corpuscular Volume 91 FL (80-99) Mean Corpuscular Hemoglobin 29.6 PG (27.0-31.0) Mean Corpuscular Hemoglobin Concent 32.5 G/DL (32.0-36.0) Red Cell Distribution Width 13.8 % (11.6-14.8) Platelet Count 355 K/UL (150-450) Mean Platelet Volume 6.8 FL (6.5-10.1) Neutrophils (%) (Auto) 66.7 % (45.0-75.0) Lymphocytes (%) (Auto) 21.6 % (20.0-45.0) Monocytes (%) (Auto) 9.1 % (1.0-10.0) Eosinophils (%) (Auto) 2.2 % (0.0-3.0) Basophils (%) (Auto) 0.4 % (0.0-2.0) Sodium Level 137 MMOL/L (136-145) Potassium Level 4.4 MMOL/L (3.5-5.1) Chloride Level 105 MMOL/L (98-107) Carbon Dioxide Level 27 MMOL/L (21-32) Anion Gap 5 mmol/L (5-15) Blood Urea Nitrogen 18 mg/dL (7-18) Creatinine 1.3 MG/DL (0.55-1.30) Estimat Glomerular Filtration Rate 50.2 mL/min (>60) Glucose Level 173 MG/DL (74-106) H Calcium Level 8.0 MG/DL (8.5-10.1) L Total Bilirubin 0.8 MG/DL (0.2-1.0) Aspartate Amino Transf (AST/SGOT) 26 U/L (15-37) Alanine Aminotransferase (ALT/SGPT) 19 U/L (12-78) Alkaline Phosphatase 83 U/L (46-116) Total Protein 7.0 G/DL (6.4-8.2) Albumin 2.2 G/DL (3.4-5.0) L Globulin 4.8 g/dL Albumin/Globulin Ratio 0.5 (1.0-2.7) L Current Medications Medications (Trade) Dose Ordered Sig/Helen Route PRN Reason Start Time Stop Time Status Last Admin Dose Admin Acetaminophen (Tylenol) 650 mg Q4H PRN ORAL Fever/Headache/Mild Pain 11/21/17 16:15 12/21/17 16:14 11/23/17 11:20 Albuterol/ Ipratropium (Albuterol/ Ipratropium) 3 ml Q4H PRN HHN Shortness of Breath 11/20/17 21:15 11/25/17 21:14 11/22/17 13:07 Albuterol/ Ipratropium (Albuterol/ Ipratropium) 3 ml Q6HRT HHN 11/22/17 19:00 11/27/17 18:59 11/25/17 13:48 Aspirin (ASA) 81 mg DAILY ORAL 11/21/17 09:00 12/19/17 08:59 11/25/17 08:59 Carvedilol (Coreg) 3.125 mg EVERY 12 HOURS ORAL 11/20/17 21:00 12/19/17 08:59 11/25/17 09:01 Dextrose (Dextrose 50%) STAT PRN IV Hypoglycemia 11/21/17 05:00 12/19/17 04:59 Diltiazem HCl (Cardizem CD) 120 mg BID ORAL 11/21/17 18:00 12/19/17 08:59 11/25/17 09:01 Folic Acid (Folate) 1 mg DAILY ORAL 11/21/17 09:00 12/19/17 08:59 11/25/17 08:59 Glipizide (Glucotrol) 5 mg BIAC ORAL 11/21/17 06:30 12/19/17 16:29 11/25/17 06:43 Insulin Aspart (NovoLOG) BEFORE MEALS AND HS SUBQ 11/20/17 21:00 12/19/17 20:59 11/25/17 12:23 Insulin Aspart (NovoLOG) 10 units BEFORE MEALS AND HS SUBQ 11/20/17 21:00 12/19/17 20:59 11/25/17 12:24 Insulin Detemir (Levemir) 25 units Q12HR@0600,1800 SUBQ 11/21/17 06:00 12/19/17 18:59 11/25/17 07:07 Pantoprazole (Protonix) 40 mg ACBREAKFAST ORAL 11/21/17 06:30 12/20/17 06:29 11/25/17 06:43 Piperacillin Sod/ Tazobactam Sod 3.375 gm/Dextrose 55 ml @ 13.75 mls/ hr Q8H IVPB 11/22/17 16:00 11/25/17 17:00 11/25/17 08:59 Piperacillin Sod/ Tazobactam Sod 3.375 gm/Sodium Chloride 110 ml @ 27.5 mls/hr Q8H IVPB 11/26/17 00:00 11/29/17 15:59 Shanna Talbert M.D. Nov 25, 2017 14:30
[2017-11-25 16:00] VITALS: BP 130/70
--- NOTE | 2017-11-25 23:00 | Geriatric Medicine Prog Note ---
DATE: 11/25/2017 ENDOCRINOLOGY PROGRESS NOTE SUBJECTIVE: The patient is more comfortable today and appropriate for discharge home. OBJECTIVE: VITAL SIGNS: Blood pressure , pulse 77, respiratory rate 19, temperature 97.1 degrees. RESPIRATORY: Clear. CVS: Regular. LABORATORY DATA: Glucose 136-191. ASSESSMENT: 1. Diabetes mellitus type 2, improved. 2. Hypertension, fair control PLAN: Discharge on detemir insulin 25 units q.12 h. and NovoLog 10 units t.i.d. before meals and Glucotrol 5 mg daily. Continue antihypertensive medications per primary physician. Ramu Piper M.D. DR: VICKY JOB#: [id number] CC:
[2017-11-26] MEDS ORDERED: Piperacillin/Tazobactam 3.375 GM in NS 110 ML IVPB SCH ×2
--- NOTE | 2017-11-30 15:04 | Discharge Summary ---
Discharge Summary Hospital Course Date of Admission Nov 18, 2017 at 22:11 Date of Discharge Nov 25, 2017 at 19:00 Admitting Diagnosis Altered Mental Status HPI Ilene Del Rosario is a 62 year old female who was admitted on Nov 18, 2017 at 22: 11 for Altered Mental Status Hospital Course dc summary #[id number] Discharge Medications New Medications: Amoxicillin/Potassium Clav 875-125* (Augmentin 875-125 Tablet*) 1 Each Tablet 1 TAB ORAL TWICE A DAY, #20 TAB Insulin Detemir (Levemir Flexpen) 100 Unit/1 Ml Insuln.pen 25 UNITS SUBQ Q12HR@0600,1800, #1 EA Continued Medications: Acetaminophen With Codeine (T#3) (Tylenol #3 Tab*) Y Tab 1 TAB ORAL Q6HR PRN for For Pain, #10 TAB Aspirin Ec* (Aspirin Ec*) 81 Mg Tablet.dr 81 MG ORAL DAILY, TAB Betamethasone/Clotrimazole (Clotrimazole-Betamethasone Crm) 15 Gm Cream..g. 1 APPLIC TOPIC DAILY for 30 Days, GM Carvedilol (Coreg) 3.125 Mg Tablet 3.125 MG ORAL EVERY 12 HOURS for 30 Days, TAB Clobetasol Propionate (Clobetasol Propionate) 15 Gm Oint...g. 1 APPLIC TOPIC TWICE A DAY for 30 Days, GM Diltiazem Hcl* (Cartia Xt*) 120 Mg Cap.er.24h 120 MG ORAL DAILY, CAP 0 Refills Swallow capsule whole. Do not open, chew, or crush Folic Acid* (Folic Acid*) 1 Mg Tablet 1 MG ORAL DAILY, TAB Glipizide/Metformin Hcl (Glipizide-Metformin 5-500 Mg) 1 Each Tablet #60 Hydrochlorothiazide* (Hydrochlorothiazide*) 12.5 Mg Tablet 12.5 MG ORAL DAILY, TAB Insulin Regular, Human (Humulin R) 100 Unit/1 Ml Vial #10 Irbesartan* (Avapro*) 150 Mg Tablet 150 MG ORAL DAILY for 30 Days, TAB Lisinopril* (Zestril*) 10 Mg Tablet 10 MG ORAL DAILY, TAB Pantoprazole* (Pantoprazole*) 40 Mg Tablet.dr 40 MG ORAL DAILY, TAB Spironolactone (Aldactone) 25 Mg Tablet 25 MG ORAL DAILY for 30 Days, TAB Discontinued Medications: Amoxicillin* (Amoxil*) 500 Mg Capsule 500 MG ORAL Q12HR, #20 CAP Furosemide* (Lasix*) 40 Mg Tablet 40 MG ORAL DAILY for 30 Days, TAB Warfarin Sod (Coumadin*) 7.5 Mg Tablet 7.5 MG ORAL DAILY for 30 Days, TAB Discharge Condition Upon Discharge: stable Discharge Disposition Patient was discharged to Home (01) Discharge Diagnoses: Discharge Instructions Discharge Instructions Special Instructions I have been assigned to complete a D/C Summary on this account. I was not involved in the patient management Maggie Sheehan NP ([place]) Nov 30, 2017 15:04
--- NOTE | 2017-12-01 10:00 | Discharge Summary 2 SIG ---
DATE OF ADMISSION: 11/18/2017 DATE OF DISCHARGE: 11/25/2017 REASON FOR ADMISSION: 62-year-old female with a history of diabetes, hypertension, obesity, and GERD, presented to emergency room for evaluation due to the altered mental status and delirium. The patient endorsed a devil that poison her soup. Upon evaluation in the emergency department, the patient was found to be tachycardic. EKG showed sinus tachycardia with T-wave inversion in inferior and lateral leads and multiple PVCs. Heart rate between 107 and 150. Chest x-ray revealed cardiomegaly, no pneumothorax, no consolidation, and no effusion. Glucose -412. Hemoglobin and hematocrit 7.9 and 26, respectively. INR above 10. Troponin negative. Potassium -6.0. Evidence of acute renal insufficiency. CT of the head was negative for any acute intracranial pathology. Troponin was negative. The patient admitted with diagnosis of acute renal insufficiency, hyperkalemia, diabetes mellitus poorly controlled, altered mental status, coagulopathy with severely elevated INR above 10, and anemia. HOSPITAL COURSE: The patient admitted. The patient started on the IV fluids. Renal parameters and electrolytes were closely monitored. Nephrotoxics were avoided. Medications were dosed in accordance with renal parameters. Acute renal insufficiency resolved. Prior to discharge, BUN from 94 down to 18 and creatinine from 3.6 down to 1.3. Coagulopathy was treated with two units of fresh frozen plasma and INR afterwards 1.2. The patient required blood transfusion. The patient status post two units of packed red blood cells. Prior to discharge, hemoglobin- 9 and hematocrit -27.7. Endocrinology consult was requested for management of blood sugar. Hemoglobin A1c -9.7, clearly not at goal. Blood sugar was managed with a premeal short-acting insulin and long-acting insulin as well as a sliding scale of NovoLog as needed. Blood sugar improved. Upon discharge, getterer recommended to continue long-acting insulin and glipizide. Blood pressure was managed with the current regimen of Cardizem and beta-yaneli and remained stable. Aspirin was continued. GI prophylaxis provided. The patient was initially on antibiotics for presumed healthcare-associated pneumonia. Sputum culture was negative. Blood culture were negative. Urine culture were negative. MRI of the orbit, face, and neck revealed right perimandibular abscess, but no evidence of acute osteomyelitis. The patient was on the IV antibiotic as per ID direction and changed to oral for additional time as specified by ID to complete the course of antibiotics per ID recommendation. The patient also had a dental infection with a root canal infection and needs a dental evaluation as an outpatient. Infectious Diseases specialist recommended ENT for possible incision and drainage of the right mandibular abscess and recommended to repeat image if no resolution of infection with two weeks of antibiotics. Supplemental oxygen and pulmonary toilet provided as needed. Pulse oximetry was stable on room air. Blood pressure was stable. Heart rate improved. Altered mental status was likely secondary to acute renal insufficiency as well as the infectious process. Mental status improved to baseline. The patient was stable for discharge home. FINAL DIAGNOSES: 1. Altered mental status due to acute metabolic encephalopathy 2. Acute renal insufficiency. 3. Hyperkalemia. 4. Diabetes mellitus, poorly controlled. 5. Right mandibular abscess. 6. Healthcare-associated pneumonia. 7. Coagulopathy with INR above 10. 8. Anemia, status post blood transfusion. 9. Hypertension. 10. Dental infection. DISCHARGE MEDICATIONS: See medication reconciliation list. DISCHARGE INSTRUCTIONS: The patient discharged home. Follow up with primary medical doctor next week. Ramu Sutton M.D. I have been assigned to dictate discharge summary on this account and I was not involved in the patient's management. Maggie Swannst. francis medical centerHeidi N.PRenata DR: EUGENIO JOB#: [id number] CC: DANO
== END 2017-11-25 19:00 | disposition home or self-care (01) | DRG 698 ==
LOC: EMR 19:53 → EDBEDREQSVC 20:38 → EDBEDREQ 22:00 → 2E 22:11 → EDBEDREQ 22:35 → ICU 11-19 12:17 → 2E 11-20 18:16
PROC: 30233K1 Transfusion of Nonautologous Frozen Plasma into Peripheral Vein, Percutaneous Approach (ICD-10-PCS; principal; 2017-11-19)
PROC: 30233N1 Transfusion of Nonautologous Red Blood Cells into Peripheral Vein, Percutaneous Approach (ICD-10-PCS; principal; 2017-11-19)
DX: N28.9 Disorder of kidney and ureter, unspecified (principal); J18.9 Pneumonia, unspecified organism; G93.41 Metabolic encephalopathy; D68.9 Coagulation defect, unspecified; E87.5 Hyperkalemia; E11.65 Type 2 diabetes mellitus with hyperglycemia; R00.0 Tachycardia, unspecified; M27.2 Inflammatory conditions of jaws; K21.9 Gastro-esophageal reflux disease without esophagitis; I10 Essential (primary) hypertension; E66.9 Obesity, unspecified; K04.7 Periapical abscess without sinus; Y95 Nosocomial condition; Z68.38 Body mass index [BMI] 38.0-38.9, adult
CPT/HCPCS: 36415; 70450; 70540; 71010; 71250; 80048; 80053; 80061; 81003; 82962; 83036; 83690; 83735; 83880; 84443; 84484; 85007; 85025; 85610; 86850; 86900; 86901; 86920; 86927; 87040; 87070; 87086; 87205; 93005; 93306; 93970; 94640; 99285; J1815; J7620

== ENCOUNTER 2017-12-23 10:48 | Emergency (ER) | payer MEDICARE, MEDICAID ==
[~2017-12-23] VITALS: Ht 157.5 cm; Wt 90.7 kg
[~2017-12-23 10:48] MED LIST changes: +ASPIRIN EC81 MG ORAL; +AUGMENTIN 875-1 EAC1 ORAL; +CARTIA XT120 MG ORAL; +FOLIC ACID1 MG ORAL; +HYDROCHLOROTH12.5 MG ORAL; +LEVEMIR FL100 UNIT/1 SUBQ; +PANTOPRAZOLE SO40 MG ORAL; +ZESTRIL10 MG ORAL
[2017-12-23 11:10] VITALS: BP 118/68
[2017-12-23 12:01] VITALS: BP 118/68
[2017-12-23] MEDS ORDERED: ACETAMINOPHEN-1 EAC1 ORAL (12:07)
--- NOTE | 2017-12-23 14:49 | Emergency Room Report ---
History of Present Illness General Chief Complaint: Pain Source: Patient Present Illness HPI 62-year-old female presents ED complaining of left wrist pain. States that on she fell and injured her left wrist. Did not seek medical attention until now. Presents with pain and swelling to left wrist. Throbbing, 7/10, nonradiating. Denies any other injuries. No other aggravating relieving factors. Denies any other substance symptoms Allergies: Coded Allergies: No Known Allergies (Unverified , 09/09/16) Patient History Past Medical History: DM, HTN Past Surgical History: none Pertinent Family History: none Social History: Denies: smoking, alcohol use, drug use Now: No Immunizations: UTD Reviewed Nursing Documentation: PMH: Agreed, PSxH: Agreed Nursing Documentation-PMH Past Medical History: No History, Except For Hx Hypertension: Yes Hx Diabetes: Yes Hx Cancer: No Hx Gastrointestinal Problems: No Hx Neurological Problems: No Review of Systems All Other Systems: negative except mentioned in HPI Physical Exam Vital Signs Date Time Temp Pulse Resp B/P (MAP) Pulse Ox O2 Delivery O2 Flow Rate FiO2 12/23/17 10:57 97.9 79 18 118/68 97 Room Air Sp02 EP Interpretation: reviewed, normal General Appearance: no apparent distress, alert, GCS 15, non-toxic Head: normocephalic Eyes: bilateral eye normal inspection, bilateral eye PERRL ENT: normal ENT inspection Neck: normal inspection Respiratory: normal inspection Cardiovascular #1: normal inspection Gastrointestinal: normal inspection Rectal: deferred Genitourinary: no CVA tenderness Musculoskeletal: swelling - L wrist/hand Neurologic: alert, oriented x3, responsive, motor strength/tone normal, sensory intact, speech normal Psychiatric: judgement/insight normal, memory normal, mood/affect normal, no suicidal/homicidal ideation Skin: normal inspection Lymphatic: normal inspection Procedures Splinting Splinting : Consent: Verbal Pre-Made Type: velcro Splint: wrist Pre-Proc Neuro Vasc Exam: normal Post-Proc Neuro Vasc Exam: normal Patient Tolerated: Well Complications: None Medical Decision Making Diagnostic Impression: Primary Impression: Wrist fracture Qualified Codes: S62.102A - Fracture of unspecified carpal bone, left wrist, initial encounter for closed fracture ER Course Hospital Course 62-year-old F presents to ED complaining of LUE pain s/p fall Differential diagnoses include: Fracture, dislocation, sprain, contusion Clinical course Patient placed on stretcher. After initial history and physical, I ordered pain medications and Xrays of L hand, wrist Xrays prelim read shows distal radius fx. placed in volar splint. discussed findings with patient Diagnosis - wrist fracture Stable and discharged to home with prescription for Tylenol #3. apply ice, keep elevated. Followup with Ortho. Return to ED if symptoms recur or worsen Other X-Ray Diagnostic Results Other X-Ray Diagnostic Results #1: X-Ray ordered: L wrist # of Views/Limited Vs Complete: 3 View Indication: Pain EP Interpretation: Yes Interpretation: no dislocation, other - distal radius fx Impression: Other - fx Electronically Signed by: Electronically signed by Ralph Gao MD Other X-Ray Diagnostic Results #2: X-Ray ordered: Left Hand # of Views/Limited Vs Complete: 3 View Indication: Pain EP Interpretation: Yes Interpretation: no dislocation, no fractures Impression: No acute disease Electronically Signed by: Electronically signed by Ralph Gao MD Last Vital Signs Date Time Temp Pulse Resp B/P (MAP) Pulse Ox O2 Delivery O2 Flow Rate FiO2 12/23/17 12:01 97.9 79 18 118/68 97 Room Air Status: improved Disposition: HOME, SELF-CARE Condition: Stable Scripts Acetaminophen With Codeine (T#3) (TYLENOL #3 TAB*) Y Tab 1 TAB ORAL Q8H Y for For Pain, #20 TAB Prov: RALPH GAO M.D. 12/23/17 Patient Instructions: Wrist Fracture, [id number] RALPH GAO M.D. Dec 23, 2017 14:49
--- NOTE | 2017-12-23 16:45 | Diagnostic Imaging Report ---
Clinical Indication:Reason For Exam: PAIN Technique: 3 views of the left wrist Comparison: None Findings: There is a transverse fracture of the distal radius. This is posteriorly displaced by about one half bone width, considerably impacted. Unclear as to whether this involves the articular surface although suspect that it does given the degree of impaction. There is an associated minimally displaced fracture of the ulnar styloid. No definite carpal fracture demonstrated. Impression: Positive for distal radial and ulnar fractures This agrees with the findings described by the emergency room physician in the electronic medical record
--- NOTE | 2017-12-23 16:47 | Diagnostic Imaging Report ---
Indication: Pain, status post fall, left hand pain and swelling Technique: 3 views left hand Comparison: none Findings: There is a impacted comminuted fracture of the distal radius. There is associated mildly displaced ulnar styloid fracture. No carpal fracture demonstrated. No hand fracture demonstrated. There is mild degenerative joint space narrowing of the second through fifth distal interphalangeal joints, and of the fourth and fifth proximal interphalangeal joints Impression: Positive for distal radial and ulnar fractures
== END 2017-12-23 12:01 | disposition home or self-care (01) ==
LOC: EMR 11:40
DX: S52.592A Other fractures of lower end of left radius, initial encounter for closed fracture (principal); S52.612A Displaced fracture of left ulna styloid process, initial encounter for closed fracture; W19.XXXA Unspecified fall, initial encounter; Y92.9 Unspecified place or not applicable; I10 Essential (primary) hypertension; E11.9 Type 2 diabetes mellitus without complications
CPT/HCPCS: 29260; 99284

== ENCOUNTER 2019-08-19 16:28 | Inpatient (IN) | payer MEDICARE, MEDICAID ==
[~2019-08-19] VITALS: Ht 160 cm; Wt 102.8 kg
[2019-08-19 16:58] VITALS: BP 156/76
--- NOTE | 2019-08-19 16:59 | NUR ---
ED Nurse Note: Pt came in from home due to daughter noticed that pt has been "not like normal, clumsy, dropping things. Pt cannot shower herself and does not go to [facility]" x " a couple of days". AOx4 upon arrival, although seems confused at times and according to daughter " not as active as normal". 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 HR 120-130 at this time, ERMD aware. classroom monitor attached. Daughter at bedside.
[2019-08-19] MEDS ORDERED: MULTIVITAMINS1 EAC8 ORAL (17:15)
[2019-08-19] MEDS ORDERED: FUROSEMIDE40 MG ORAL (17:15)
[2019-08-19] MEDS ORDERED: FERROUS SULFAT325 MG ORAL (17:15)
[2019-08-19 17:28] LABS: BASOPHILS % (AUTO) 1.9 % (0.0-2.0); EOSINOPHILS % (AUTO) 1.7 % (0.0-3.0); LYMPHOCYTES % (AUTO) 23.8 % (20.0-45.0); MEAN CORPUSCULAR VOLUME 88 FL (80-99); MONOCYTES % (AUTO) 12.7 % (1.0-10.0); NEUTROPHILS % (AUTO) 59.9 % (45.0-75.0); PLATELET COUNT 246 K/UL (150-450); RED BLOOD COUNT 4.19 M/UL (4.20-5.40); RED CELL DISTRIBUTION WIDTH 12.4 % (11.6-14.8); WHITE BLOOD COUNT 7.6 K/UL (4.8-10.8)
[2019-08-19 17:30] LABS: APPEARANCE,URINE CLEAR; BILIRUBIN, URINE NEGATIVE (NEGATIVE); COLOR,URINE PALE YELLOW; GLUCOSE, URINE (UA) NEGATIVE (NEGATIVE); KETONES,URINE NEGATIVE (NEGATIVE); LEUKOCYTE ESTERASE ,URINE 1+ (NEGATIVE); NITRITE,URINE NEGATIVE (NEGATIVE); PH,URINE 6 (4.5-8.0); PROTEIN,URINE NEGATIVE (NEGATIVE); UROBILINOGEN,URINE NORMAL MG/DL (0.0-1.0)
[2019-08-19 17:41] LABS: ANION GAP 10 mmol/L (5-15); BLOOD UREA NITROGEN 26 mg/dL (7-18); CALCIUM 9.8 MG/DL (8.5-10.1); CARBON DIOXIDE 25 MMOL/L (21-32); CHLORIDE 105 MMOL/L (98-107); CREATININE 1.6 MG/DL (0.55-1.30); POTASSIUM 4.5 MMOL/L (3.5-5.1); SODIUM 140 MMOL/L (136-145)
[2019-08-19 17:54] LABS: ALANINE AMINOTRANSFERASE 18 U/L (12-78); ALBUMIN 3.9 G/DL (3.4-5.0); ALKALINE PHOSPHATASE 118 U/L (46-116); ASPARTATE AMINO TRANSFERASE 21 U/L (15-37); BILIRUBIN,TOTAL 0.4 MG/DL (0.2-1.0); CKMB 3.6 NG/ML (0.0-3.6); CREATINE KINASE 259 U/L (26-308); PHOSPHORUS 3.4 MG/DL (2.5-4.9)
--- NOTE | 2019-08-19 18:04 | Diagnostic Imaging Report ---
Indication: Altered mental status Technique: Contiguous 5 mm thick transaxial imaging of the head obtained in a Siemens Sensation [address] scanner. Soft tissue and bone windows generated. Automatic Exposure Control was utilized. Total Dose length Product (DLP): 1383.[address] Dose Index Volume (CTDIvol): 70.38 mGy Comparison: 11/18/2017 Findings: In the left parietal lobe there is a small area of low attenuation that could represent edema (image 23-25 axial). Correlate clinically for acute ischemia. MRA be of benefit for further evaluation. There is no evidence of hemorrhage. There is an apparent area of low attenuation in the left cerebellum which is probably artifactual. Mild atrophy of the brain noted. The ventricles appear symmetric. Basal cisterns appear normal. Osseous structures are unremarkable. IMPRESSION: Small area of edema suspected in the left parietal lobe. Acute ischemia unremarkable other possibilities not excluded. Correlate clinically. Consider MR for further evaluation. [facility] has communicated the preliminary results to the Emergency Department. Their findings are largely concordant with this report. The CT scanner at [facility] is accredited by the [employer] and the scans are performed using dose optimization techniques as appropriate to a performed exam including Automatic Exposure control.
--- NOTE | 2019-08-19 18:05 | Emergency Room Report ---
History of Present Illness General Chief Complaint: Altered Mental Status Source: Patient Present Illness HPI Patient is a 64-year-old female brought in by EMS after increased altered mental status. Patient been noticed to be somewhat more confused over the past 1 week. she had been able to care for herself less than usual. She had not been vomiting. No known fever. Patient takes multiple medications including for blood pressure. Allergies: Coded Allergies: No Known Allergies (Unverified , 09/09/16) Patient History Past Medical History: see triage record Reviewed Nursing Documentation: PMH: Agreed; PSxH: Agreed Nursing Documentation-PMH Past Medical History: No History, Except For Hx Cardiac Problems: No Hx Hypertension: Yes Hx Pacemaker: No Hx Asthma: No Hx COPD: No Hx Diabetes: Yes Hx Cancer: No Hx Gastrointestinal Problems: No Hx Dialysis: No History Of Psychiatric Problem: No Hx Neurological Problems: No Hx Cerebrovascular Accident: No Hx Seizures: No Review of Systems All Other Systems: limited - Poor historian Physical Exam Vital Signs Date Time Temp Pulse Resp B/P (MAP) Pulse Ox O2 Delivery O2 Flow Rate FiO2 08/19/19 16:33 98.4 128 18 195/88 (123) 97 Room Air Sp02 EP Interpretation: reviewed, normal General Appearance: normal inspection, well appearing, no apparent distress, alert, obese, Chronically Ill Head: atraumatic ENT: normal ENT inspection, hearing grossly normal, normal voice Neck: normal inspection, full range of motion, supple, no bony tend Respiratory: normal inspection, lungs clear, normal breath sounds, no respiratory distress, no retraction, no wheezing Cardiovascular #1: no edema, tachycardia Gastrointestinal: normal inspection, normal bowel sounds, non tender, soft, no guarding, no hernia Genitourinary: no CVA tenderness Musculoskeletal: normal inspection, back normal, normal range of motion Neurologic: normal inspection, alert, oriented x3, responsive, speech normal, motor weakness - Right upper extremity slightly more weak than the left Psychiatric: normal inspection, judgement/insight normal, mood/affect normal Medical Decision Making Diagnostic Impression: Primary Impression: Altered mental state Additional Impression: CVA (cerebral vascular accident) ER Course Patient presented for altered mental status. Differential diagnosis include was not limited to pneumonia, CVA, meningitis, urinary tract infection among others. Because of complexity of patient's case laboratory tests and imaging studies were ordered. Patient is noted to have prolonged time course with increased confusion. CT of the head was ordered to the patient's alteration in mental status. Laboratory testing showed some elevation of the BUN and creatinine. Patient was started on IV fluids. She was noted to have gradual improvement in her tachycardia.CT of head read by radiology showed left parietal edema versus gliosis.Patient was unable to be transferred to [facility] to [facility] due to lack of neurology availability. Patient will be admitted and was discussed with Dr. Jermain Mcelroy for inpatient management. Labs Test 08/19/19 17:00 08/19/19 17:15 White Blood Count 7.6 K/UL (4.8-10.8) Red Blood Count 4.19 M/UL (4.20-5.40) Hemoglobin 12.0 G/DL (12.0-16.0) Hematocrit 37.0 % (37.0-47.0) Mean Corpuscular Volume 88 FL (80-99) Mean Corpuscular Hemoglobin 28.6 PG (27.0-31.0) Mean Corpuscular Hemoglobin Concent 32.4 G/DL (32.0-36.0) Red Cell Distribution Width 12.4 % (11.6-14.8) Platelet Count 246 K/UL (150-450) Mean Platelet Volume 6.9 FL (6.5-10.1) Neutrophils (%) (Auto) 59.9 % (45.0-75.0) Lymphocytes (%) (Auto) 23.8 % (20.0-45.0) Monocytes (%) (Auto) 12.7 % (1.0-10.0) Eosinophils (%) (Auto) 1.7 % (0.0-3.0) Basophils (%) (Auto) 1.9 % (0.0-2.0) Sodium Level 140 MMOL/L (136-145) Potassium Level 4.5 MMOL/L (3.5-5.1) Chloride Level 105 MMOL/L (98-107) Carbon Dioxide Level 25 MMOL/L (21-32) Anion Gap 10 mmol/L (5-15) Blood Urea Nitrogen 26 mg/dL (7-18) Creatinine 1.6 MG/DL (0.55-1.30) Estimat Glomerular Filtration Rate 39.3 mL/min (>60) Glucose Level 211 MG/DL (74-106) Lactic Acid Level 0.60 mmol/L (0.4-2.0) Calcium Level 9.8 MG/DL (8.5-10.1) Phosphorus Level 3.4 MG/DL (2.5-4.9) Magnesium Level 2.3 MG/DL (1.8-2.4) Total Bilirubin 0.4 MG/DL (0.2-1.0) Aspartate Amino Transf (AST/SGOT) 21 U/L (15-37) Alanine Aminotransferase (ALT/SGPT) 18 U/L (12-78) Alkaline Phosphatase 118 U/L (46-116) Total Creatine Kinase 259 U/L (26-308) Creatine Kinase MB 3.6 NG/ML (0.0-3.6) Creatine Kinase MB Relative Index 1.3 Troponin I 0.002 ng/mL (0.000-0.056) Total Protein 7.9 G/DL (6.4-8.2) Albumin 3.9 G/DL (3.4-5.0) Globulin 4.0 g/dL Albumin/Globulin Ratio 1.0 (1.0-2.7) Urine Color Pale yellow Urine Appearance Clear Urine pH 6 (4.5-8.0) Urine Specific [place] 1.015 (1.005-1.035) Urine Protein Negative (NEGATIVE) Urine Glucose (UA) Negative (NEGATIVE) Urine Ketones Negative (NEGATIVE) Urine Blood Negative (NEGATIVE) Urine Nitrite Negative (NEGATIVE) Urine Bilirubin Negative (NEGATIVE) Urine Urobilinogen Normal MG/DL (0.0-1.0) Urine Leukocyte Esterase 1+ (NEGATIVE) Urine RBC 0-2 /HPF (0 - 2) Urine WBC 2-4 /HPF (0 - 2) Urine Squamous Epithelial Cells Few /LPF (NONE/OCC) Urine Bacteria Few /HPF (NONE) EKG Diagnostic Results Rate: tachycardiac Rhythm: NSR ST Segments: no acute changes Last Vital Signs Date Time Temp Pulse Resp B/P (MAP) Pulse Ox O2 Delivery O2 Flow Rate FiO2 08/19/19 16:58 98.4 120 18 156/76 97 Room Air Status: improved Disposition: ADMITTED INPATIENT Condition: Serious Referrals: NOT CHOSEN IPA/,REFERRING (PCP) Michel King MD Aug 19, 2019 18:05
[2019-08-19] MEDS ORDERED: Thiamine HCl 100 MG in D5W 55 ML IVPB ONE (18:15)
[2019-08-19 19:00] VITALS: BP 152/56
--- NOTE | 2019-08-19 19:08 | NUR ---
ED Nurse Note: Pt urionated,using bedpan x 2. Light narda urine noted. Pt has weakness on R hand, noted when trying to sign Inventory note. Speaks slowly.
--- NOTE | 2019-08-19 20:43 | NUR ---
ED Nurse Note: Report given to Jo FERRELL of telemetry unit.
--- NOTE | 2019-08-19 20:45 | NUR ---
ED Nurse Note: Pt transferred to telemetry unit via gurney with all belongings sent. On school lunch monitor with RN and non destructive testing technician.
[2019-08-19 21:00] VITALS: BP 150/90
--- NOTE | 2019-08-19 21:00 | NUR ---
PT IS A NEW ADMISSION, OBTAINED REPORT FROM EVELIO FERRELL. PT IS A 64 YEAR OLD FEMALE HERE DUE TO ALTERED MENTAL STATUS. SHE IS A/OX4 WITH EPISODES OF CONFUSION/FORGETFULNESS NOTED. HEAD TO TOE ASSESSMENT DONE. ADMISSION PROTOCOL COMPLETE. SKIN CHECK DONE, NOTED TO BE INTACT. HOME MEDS TAKEN TO PHARMACY (TICKET # [id number]). PT ORIENTED TO UNIT AND STAFF. EDUCATED ON RISK FOR SKIN BREAKDOWN AND FALL RISK PRECAUTIONS. ALL NEEDS ANTICIPATED AND MET. CALL LIGHT WITHIN REACH. SPOKE TO MD CHRISTIANO MADRIGAL AND OBTAINED ADMITTING ORDERS (CARRIED OUT). CONTINUE TO MONITOR.
--- NOTE | 2019-08-19 22:00 | NUR ---
CALLED [employer] FOR BILATERAL SCD, UNABLE TO LEAVE MESSAGE. WILL ATTEMPT AGAIN AT A LATER TIME.
[2019-08-19] MEDS ORDERED: NOVOLIN 70100 UNIT/1 SUBQ ×2 (22:21→22:22)
[2019-08-19] MEDS: NovoLOG Insulin Flexpen SUBQ SCH (23:32)
[2019-08-20] VITALS: BP 149/70
[2019-08-20 04:00] VITALS: BP 140/63
[2019-08-20] MEDS: NovoLOG Insulin Flexpen SUBQ SCH ×4 (06:24→21:20)
--- NOTE | 2019-08-20 06:30 | NUR ---
CALLED [employer] FOR BILATERAL SCD, UNABLE TO LEAVE MESSAGE. WILL ATTEMPT AGAIN AT A LATER TIME.
--- NOTE | 2019-08-20 07:05 | NUR ---
HAND-OFF: Report given to Gerri FERRELL. Pt resting in bed free from apparent distress.
--- NOTE | 2019-08-20 07:16 | NUR ---
NURSE NOTES: Patient stable AOx4 resting comfortably in bed watching TV. RR even and unlabored. Side rails up x2, bed in lowest position. Will continue to monitor. Addendum: 08/20/19 at 1245 by MICHELLE CARMICHAEL RN Patient's right sided noted to be weak. RT Arm strength 3/5 with slight sensation when stimulated. Strength to RT leg 3/5 with no sensation. Per patient she "feels funny".
[2019-08-20 08:00] VITALS: BP 141/80
[2019-08-20] MEDS: Aspirin Baby 81mg ORAL SCH (08:25)
[2019-08-20] MEDS: Furosemide 40mg tab ORAL SCH (08:25)
[2019-08-20] MEDS: Multivitamin w/Minerals tab ORAL SCH (08:25)
--- NOTE | 2019-08-20 10:25 | NUR ---
*-* NO INSURANCE INFORMATION IN THE BAR UNABLE TO SEND CLINICALS OR REVIEWS *-*
--- NOTE | 2019-08-20 11:10 | NUR ---
PT EVALUATION NOTE Patient seen for initial evaluation, see complete evaluation for details. Patient presents with weakness R hemibody > L hemibody and impaired balance which affects patient's ability to perform mobility tasks. Patient required min assist for bed mobility and transfers with FWW. Attempted ambulation however patient having difficulty taking forward steps with BLE and was unable to maintain lead mobile developer with R hand on FWW. Patient will benefit from skilled inpatient PT intervention to address strength, balance and safety for improved functional mobility following safety precautions with decreased fall risk. Recommend ARU/SNF for further rehab to maximize mobility once medically cleared by MD. DME needs to be determined based on patient's progress. Addendum: 08/20/19 at 1152 by PAIGE THOMPSON PT Amended: Links added.
--- NOTE | 2019-08-20 11:15 | Diagnostic Imaging Report ---
Indication: Dyspnea Comparison: 11/21/2017 A single view chest radiograph was obtained. Findings: Cardiomediastinal appearance is within normal limits for age. The lungs are clear. Pulmonary vascularity is appropriate. The diaphragmatic contour is smooth and costophrenic angles are sharp. No pleural effusions are identified. The bones are unremarkable. Impression: No acute findings
--- NOTE | 2019-08-20 11:25 | NUR ---
NURSE NOTES: Patient off unit for MRI
[2019-08-20 12:00] VITALS: BP 140/80
--- NOTE | 2019-08-20 12:22 | Diagnostic Imaging Report ---
Indication: Altered consciousness Technique: The head was imaged in a 1.5 Brina magnet. Sequences obtained include sagittal and axial T1 FLAIR, axial T2 fast spin echo with fat saturation, axial T2* GRE, axial T2 FLAIR, diffusion and ADC map. Comparison: CT head yesterday 08/19/2019 There is a area of the cortical and subcortical diffusion restriction involving the left posterior parietal lobe consistent with an acute infarct. This is associated with a small amount of sulcal effacement and T2 hyperintense edema best appreciated on T2 FLAIR within some of the involved gyri. There is no magnetic susceptibility or other evidence for acute hemorrhage. There is no midline shift. There is no mass effect on the lateral ventricles which appear normal and symmetric. Flow voids indicative of patency demonstrated within the visualized portions of intracranial ICA and M1 segment of MCA bilaterally seen on this exam. The ventricles and basal cisterns appear normal. There is no midline shift. Calvarium appears unremarkable. Corpus callosum and sella, osseous bone marrow signal appear normal. IMPRESSION: Acute non-hemorrhagic CVA involving the left posterior parietal lobe. Localized edema with mild sulcal effacement noted. Critical value communication. Findings were discussed via telephone with Dr. Mcelroy @12:10 PM, 08/20/2019.
--- NOTE | 2019-08-20 12:39 | NUR ---
NURSE NOTES: Patient back from imaging. Pt assisted to bathroom, bs and vitals taken. Insulin given.
--- NOTE | 2019-08-20 12:47 | NUR ---
NURSE NOTES: MRI positive for CVA. Radiologist spoke with Dr. Mcelroy via telephone regarding results.
[2019-08-20 16:00] VITALS: BP 157/79
--- NOTE | 2019-08-20 18:58 | NUR ---
CASE MANAGEMENT: REVIEW 64Y/FEMALE PRESENTED TO ED FROM HOME CC: DIZZINESS , DROWSINESS , NUMBNESS AND TINGLING IN HER FINGERS SI: AMS . TACHYCARDIA . CVA T 98.4 HR 128 RR 18 BP 195/88 SAT 97% ROOM AIR BUN 26 CR 1.6 GLUCOSE 211 ALK PHOS 118 CXR -- NO ACUTE FINDINGS CT HEAD -- SMALL EDEMA SUSPECTED IN THE LEFT PARIETAL LOBE MRI BRAIN NO CONTRAST --ACUTE NON-HEMORRHAGIC CVA INVOLVING LEFT POSTERIOR PARIETAL LOBE IS: NS IVF BOLUS X1 THIAMINE IV X1 PATIENT ADMITTED TO TELEMETRY UNIT 08/19/2019 DCP: PATIENT IS FROM HOME
--- NOTE | 2019-08-20 19:17 | NUR ---
HAND-OFF: Report given to Fernando Cuevas RN. Patient stable resting comfortably in bed watching TV.
--- NOTE | 2019-08-20 19:20 | NUR ---
NURSE NOTES: Received report from Fidel Rodgers RN. Patient in bed AAO X4 with no complaints of acute pain or discomfort noted. On bedrest for weakness and AMS, IV line intact and patent and on continuous cardiac monitoring per protocol. Safety precaution in place; siderails X3 up, call light within reach, bed in lowest position, brakes and alarm on at all times. Needs and wants anticipated and attended, will continue plan of care.
--- NOTE | 2019-08-20 19:38 | Consultation ---
Consult Note Consult Note NEUROLOGY CONSULTATION: Full note dictated #[id number] Ms. Ilene Del Rosario is a 64-year-old, right-handed, black lady, with a past history of hypertension and diabetes mellitus for numerous years. She was functioning relatively well until approximately 3 to 4 days prior to admission when she noticed that she was having problems with talking and her right hand was not working normally. The problem continued and she also started to have some problems with walking. As a result of that she was brought into the [facility] emergency room on 08/19/2019 and was admitted. Since the problem started she feels that she may be a little better but she is still significantly weak on the right side and is having continued problems with talking. She denies any problems with altered sensations, problems with vision, problems with memory, or other neurological symptoms. She says that she goes to her doctor regularly and keeps her blood pressure and blood sugar under control. ON EXAMINATION: [facility] to [facility], and July. Memory: 3-0, 2/3-1 and 3 Remembers President Obama only. Mathematical skills impaired. Visual-spatial function impaired. Says she has a 12th. grade education from [employer] Speech mildly dysarthric Language anomic for low-frequency words Cranial nerves II through XII intact except for right VII central facial paresis Motor: G 5/5 on left. G 4+/5 in right upper extremity except for G 2/5 in finger extensors and G 3/5 in finger flexors. G 4/5 in right lower extremity except for G 3/5 and iliopsoas. Sensory: Intact to pinprick and light touch. Bilaterally graphesthesia Reflexes: 1+ on right and trace+ on left at biceps, triceps, brachioradialis. 0 at both knees and ankles. Plantar responses flexor. Coordination: [id number] normal on left side and impaired on right side related to weakness. Stance and gait deferred. IMPRESSION: Sudden onset of problems talking, right upper extremity weakness, and then problems with walking 3 to 4 days prior to admission. CT scan of brain with of left parietal hypodensity. MRI scan of brain with recent left parietal and frontal infarct. History, examination, and imaging, most consistent with left parietal frontal infarct. 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 RECOMMENDATIONS: 1. Agree with management thus far 2. Work-up for treatable causes of cerebrovascular disease 3. PT OT and speech and language therapy to rehabilitate 4. Blood pressure control with aim being systolic blood pressure between 110 and 130 mmHg for the next few days and then on the long-term equal to less than 120/80 at all times. 5. Blood sugar control with the hemoglobin A1c goal being less than 6%. 6. Observe closely. Jv Nguyen M.D., M.S.P.H. Jv Nguyen MD Aug 20, 2019 19:38
--- NOTE | 2019-08-20 19:43 | Cardiology Report ---
APPROVED REPORT EXAM: Two-dimensional and M-mode echocardiogram with Doppler and color Doppler. INDICATION Abnormal Cardiac Function M-Mode DIMENSIONS IVSd1.0 (0.7-1.1cm)Left Atrium (MM)3.4 (1.6-4.0cm) LVDd5.7 (3.5-5.6cm)Aortic Root2.4 (2.0-3.7cm) PWd1.0 (0.7-1.1cm)Aortic Cusp Exc.1.7 (1.5-2.0cm) LVDs4.1 (2.5-4.0cm) PWs1.3 cm Normal left ventricular chamber size, mildly decreased systolic function. There is global left ventricular hypokinesia. Left ventricular ejection fraction estimated to be 40-45%. All other cardiac chamber sizes are within normal limits. Focal aortic valve sclerosis with adequate cusp excursion. Thickened mitral valve leaflets with normal excursion. Mitral annulus and aortic root calcification. Pulmonic valve not well visualized. Normal tricuspid valve structure. IVC measured at 2.2 cm with physiologic collapse. A color flow and spectral Doppler study was performed and revealed: No aortic regurgitation. Mild to moderate mitral regurgitation. Mitral diastolic velocities suggest pseudo-normal LV physiology c/w moderate LV diastolic dysfunction (Grade II). Mild tricuspid regurgitation. Tricuspid systolic velocities suggests peak right ventricular systolic pressure of 39 mmHg, consistent with mild pulmonary hypertension. Mild pulmonic regurgitation present.
--- NOTE | 2019-08-20 19:52 | Cardiology Report ---
APPROVED REPORT EKG Measurement Heart [id number] Sinus tachycardia Nonspecific T wave abnormality Abnormal ECG
[2019-08-20 20:00] VITALS: BP 142/81
--- NOTE | 2019-08-20 20:30 | History and Physical Report ---
DATE OF ADMISSION: 08/19/2019 HISTORY OF PRESENT ILLNESS: This is a very pleasant 64-year-old female who was brought in by family with complaints of change in mental status. The patient lives at home with family. In my discussion with daughter, Becka, she reports that the patient has been neglecting her own care and hygiene. She has not showered for few days, which is atypical for her. She also been dropping things from her hands. She also appears to be more sleepy than usual. She underwent imaging studies in the ER, which showed abnormalities suspicious of gliosis. The patient's family reports that she had a cardiac arrest several years ago and has also had a CVA, although they are not sure of the details. She has a known cardiomyopathy. She is also known diabetic and hypertensive. PAST SURGICAL HISTORY: None reported. HOME MEDICATIONS: Metformin, metoprolol, Lipitor, and aspirin. It is unclear if she takes insulin or not. REVIEW OF SYSTEMS: Denies any headaches, hematemesis, melena, or hematochezia. PHYSICAL EXAMINATION: GENERAL: Reveals a obese female. HEENT: Unremarkable. LUNGS: Clear breath sounds bilaterally. HEART: Normal heart sounds. ABDOMEN: Soft. EXTREMITIES: There is no edema. NEUROLOGIC: Nonfocal. LABORATORY DATA: Lab testing unremarkable except for glucose 211. CT of the brain as discussed above. IMPRESSION: 1. History of cardiomyopathy. 2. Diabetes mellitus. 3. Altered mental status. 4. Previous CVA. 5. Previous cardiac arrest. DISCUSSION: 1. Admit to the hospital. 2. We will consult Cardiology. 3. Obtain 2D echo. 4. Obtain MRI brain. 5. Continue medications. 6. We will try and obtain Neurology consultation. 7. We will follow carefully. Jermain Mcelroy M.D. DR: GENE JOB#: [id number] CC:
--- NOTE | 2019-08-20 21:30 | Consultation ---
DATE OF CONSULTATION: 08/20/2019 NEUROLOGY CONSULTATION CONSULTING PHYSICIAN: Jv Nguyen M.D. REFERRING PHYSICIAN: Jermain Mcelroy M.D. HISTORY: Ms. Ilene Del Rosario is a 64-year-old, right-handed, black lady, who does have a past history of hypertension and diabetes mellitus for numerous years. She tells me that she goes to her doctor on a regular basis and her high blood pressure and diabetes are well controlled. She was functioning relatively well until approximately 3-4 days prior to admission when she noticed that she was having problems with talking and her right hand was not working in a normal fashion. The problem continued and she also started having problems with walking. As a result of that, she was brought into the [facility] emergency room on 08/19/2019 and has since been admitted. Since the problem started, she feels that she may be a little better but she is still significantly weak on the right side and is having continued problems with talking and walking. She denies any problems with altered sensations, problems with vision, problems with memory, or other neurological symptoms. She also denies any similar symptoms in the past. PAST MEDICAL HISTORY: Significant for high blood pressure and diabetes mellitus since she was in her 20s. FAMILY HISTORY: Numerous family members have high blood pressure, diabetes mellitus, and strokes. PERSONAL HISTORY: Home: She lives with her daughter. 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 Habits: She used to smoke in the past, but stopped smoking quite a few years ago. She denies the use of alcohol or illicit drugs. MEDICATIONS: Present medications include aspirin 81 mg daily, ferrous sulfate, folic acid, furosemide, hydrochlorothiazide, multivitamins, pantoprazole, and insulin. PHYSICAL EXAMINATION: GENERAL: She is a well-developed and well-nourished, obese black lady, lying in bed, in no acute distress. VITAL SIGNS: Pulse 70/minute, blood pressure 157/79 mmHg, respirations 18/minute, and temperature 98.2 degrees Fahrenheit. HEAD: Normocephalic and atraumatic. EENT: Examination benign. NECK: No neck rigidity was observed. NEUROLOGICAL EXAMINATION: MENTAL STATUS EXAMINATION: She was awake and alert. She was oriented to [facility], [facility], and July. She did not know the date or the year. She was able to recall 3/3 words immediately, but could only remember 2/3 words in 1 minute and 3 minutes even on the second trial. She was only able to remember President Obama, but could not remember presidents prior to that or following that. Her mathematical skills were impaired. Her visuospatial function was also impaired. She told me that she had a 12th grade education from a school in [place]. SPEECH: She had a mild dysarthria. LANGUAGE: She had an anomia forlow-frequency words. CRANIAL NERVES EXAMINATION: II: Visual mason were intact on confrontation testing. III, IV & : External ocular movements were full and the pupils 3 mm in diameter, equal, round, regular, and reactive to light. V: She had normal facial sensations and the temporales, masseters, and pterygoids functioned normally. VII: She had a right seventh central facial paresis. VIII: She was able to hear well bilaterally and had no nystagmus. IX: The palate moved symmetrically on phonation. X: She had no hoarseness of voice. XI: The sternocleidomastoids and trapezii functioned normally. XII: The tongue was in the midline without any fasciculations or atrophy. MOTOR SYSTEM: The tone was normal in all four extremities. Examination of muscle mass revealed no focal wasting. Examination of power revealed G 5/5 power on the left side. She had G 4+/5 power in the right upper extremity except for G 2/5 power in the finger extensors and G 3/5 power in the finger flexors. She had G 4/5 power in the right lower extremity except for G 3/5 power in the iliopsoas. SENSORY EXAMINATION: She had intact sensations to pinprick and light touch. She had bilateral graphesthesia. COORDINATION: She performed well on [id number]-ln-[id number] testing on the right side. On the left side, it was exceedingly difficult to perform because of weakness. She was unable to perform [id number]-[id number] testing bilaterally. REFLEXES: 1+ on the right and trace+ on the left at the biceps, triceps, and brachioradialis. 0 at both knees, and ankles. The plantar responses were flexor bilaterally. STANCE & GAIT: Could not be tested. DIAGNOSTIC IMPRESSION: 1. Ms. Ilene Del Rosario is a 64-year-old, right-handed, black lady, who does have a past history of hypertension and diabetes mellitus for numerous years, who approximately 3-4 days prior to admission suddenly woke up with problems with talking and moving her right hand and then noticed that she was also having problems with walking. These problems continued and as a result of that she presented to the [facility] emergency room on 08/19/2019 and was admitted. At this point in time, she continues to have all her symptoms, however, they have improved. 2. On neurological examination, at this time, she does demonstrate problems with orientation, recent and remote memory, visuospatial function, higher cognitive function, and language. She also has a mild dysarthria, right seventh central facial paresis, right hemiparesis involving the upper extremity slightly more than the lower extremity, globally diminished reflexes that are slightly brisker on the right side compared to the left in the upper extremities with areflexia in the lower extremities, inability to perform ypaw-ts-zknn testing, and significant problems performing yolqbg-uc-ycby testing on the right side, and an inability to stand and walk. 3. The CT scan of the brain without contrast reveals a left parietal hypodensity. 4. An MRI scan of the brain reveals recent left parietal and frontal infarct. 5. Laboratory test performed thus far have revealed a relatively normal CBC. The chemistry panel reveals a BUN elevated at 26, creatinine elevated at 1.6, blood glucose elevated at 211, and alkaline phosphatase elevated at 118. The Urinalysis reveals 1+ leukocyte esterase, 0-2 red blood cells, and 2-4 white blood cells per high power field. 6. The patient's history, neurological examination, laboratory data, and imaging studies are most consistent with recent left parietal and frontal infarct. The etiology for the infarct is most probably hypertensive/diabetic cerebrovascular disease. RECOMMENDATIONS: 1. Agree with management thus far. 2. The patient should be worked up thoroughly for other treatable causes of cerebrovascular disease. 3. The patient's blood pressure should be controlled with the aim being a systolic blood pressure between 110 and 130 for the next few days and then on the long-term being equal to or less than 120/80 at all times. 4. Her blood sugars should be controlled with a hemoglobin A1c goal being <6%. 5. Physical, occupational and speech and language therapy should be started to rehabilitate her. 6. The patient will be observed closely and depending on how she fairs over the next few days, further recommendations will be given. Thank you for entrusting me with the care of Ms. Del Rosario. I shall follow her with you. Jv Nguyen M.D., M.S.P.H. DR: YESSICA JOB#: [id number]
--- NOTE | 2019-08-20 22:17 | Consultation ---
History of Present Illness General Date patient seen: Aug 20, 2019 Time patient seen: 22:07 Chief Complaint: Altered Mental Status Present Illness HPI 64Y/FEMALE PRESENTED TO ED FROM HOME and complains of DIZZINESS , DROWSINESS , NUMBNESS AND TINGLING IN HER FINGERS Cardiology consulted for tachycardia. CXR clear, CT with SMALL EDEMA SUSPECTED IN THE LEFT PARIETAL LOBE. MRI BRAIN NO CONTRAST --ACUTE NON-HEMORRHAGIC CVA INVOLVING LEFT POSTERIOR PARIETAL LOBE Echo: leftt ventricular ejection fraction estimated to be 40-45%. Mild to moderate mitral regurgitation. Mitral diastolic velocities suggest pseudo-normal LV physiology c/w moderate LV diastolic dysfunction (Grade II). EKG sinus tachycardia Allergies: Coded Allergies: No Known Allergies (Unverified , 09/09/16) Medication History Scheduled Aspirin* (Aspirin*), 81 MG ORAL DAILY Ferrous Sulfate* (Ferrous Sulfate*), 325 MG ORAL DAILY, (Reported) Folic Acid* (Folic Acid*), 1 MG ORAL DAILY, (Reported) Furosemide* (Lasix*), 40 MG ORAL DAILY, (Reported) Hum Insulin Nph/Reg Insulin Hm (Novolin 70-30 100 Unit/Ml Vial), 30 UNITS SUBQ BEFORE BREAKFAST, (Reported) Hum Insulin Nph/Reg Insulin Hm (Novolin 70-30 100 Unit/Ml Vial), 18 UNITS SUBQ QHS, (Reported) Hydrochlorothiazide* (Hydrochlorothiazide*), 25 MG ORAL DAILY, (Reported) Multivitamin With Minerals (Multivitamins With Minerals*), 1 TAB ORAL DAILY, ( Reported) Pantoprazole* (Pantoprazole*), 40 MG ORAL DAILY, (Reported) Discontinued Medications Acetaminophen With Codeine (T#3) (Tylenol #3 Tab*), 1 TAB ORAL Q6HR PRN for For Pain Discontinued Reason: Therapy completed Acetaminophen With Codeine (T#3) (Tylenol #3 Tab*), 1 TAB ORAL Q8H PRN for For Pain Discontinued Reason: Therapy completed Amoxicillin/Potassium Clav 875-125* (Augmentin 875-125 Tablet*), 1 TAB ORAL TWICE A DAY Discontinued Reason: Therapy completed Aspirin Ec* (Aspirin Ec*), 81 MG ORAL DAILY, (Reported) Discontinued Reason: Therapy completed Betamethasone/Clotrimazole (Clotrimazole-Betamethasone Crm), 1 APPLIC TOPIC DAILY Discontinued Reason: Therapy completed Carvedilol (Coreg), 3.125 MG ORAL EVERY 12 HOURS Discontinued Reason: Therapy completed Clobetasol Propionate (Clobetasol Propionate), 1 APPLIC TOPIC TWICE A DAY Discontinued Reason: Therapy completed Diltiazem Hcl* (Cartia Xt*), 120 MG ORAL DAILY, (Reported) Discontinued Reason: Therapy completed Glipizide/Metformin Hcl (Glipizide-Metformin 5-500 Mg), (Reported) Discontinued Reason: Therapy completed Insulin Detemir (Levemir Flexpen), 25 UNITS SUBQ Q12HR@0600,1800 Discontinued Reason: Therapy completed Insulin Regular, Human (Humulin R), (Reported) Discontinued Reason: Therapy completed Irbesartan* (Avapro*), 150 MG ORAL DAILY Discontinued Reason: Therapy completed Lisinopril* (Zestril*), 10 MG ORAL DAILY, (Reported) Discontinued Reason: Therapy completed Spironolactone (Aldactone), 25 MG ORAL DAILY Discontinued Reason: Therapy completed Patient History Healthcare decision maker LUIS MCADAMS (PT FRIEND) Resuscitation status Full Code Advanced Directive on File No Review of Systems Constitutional: Reports: malaise, weakness Eye: Reports: no symptoms ENT: Reports: no symptoms Respiratory: Reports: no symptoms Cardiovascular: Reports: no symptoms Gastrointestinal: Reports: no symptoms Genitourinary: Reports: no symptoms Musculoskeletal: Reports: no symptoms Skin: Reports: no symptoms Psychiatric: Reports: no symptoms Neurological: Reports: focal weakness Endocrine: Reports: no symptoms Hematologic/Lymphatic: Reports: no symptoms Physical Exam General Appearance: no apparent distress, alert Lines, tubes and drains: peripheral HEENT: normocephalic, atraumatic, anicteric, mucous membranes moist, PERRL Neck: non-tender, normal alignment, supple Respiratory/Chest: chest wall non-tender, lungs clear, normal breath sounds, no respiratory distress, respiratory distress Cardiovascular/Chest: normal peripheral pulses, normal rate, regular rhythm Abdomen: normal bowel sounds, non tender, soft, no organomegaly Extremities: normal range of motion, non-tender, normal inspection, no calf tenderness Skin Exam: normal pigmentation, warm/dry, cyanotic Neurologic: motor weakness, disoriented Last 24 Hour Vital Signs Date Time Temp Pulse Resp B/P (MAP) Pulse Ox O2 Delivery O2 Flow Rate FiO2 08/20/19 16:00 98.2 78 18 157/79 (105) 97 08/20/19 16:00 70 08/20/19 12:00 97.7 82 18 140/80 (100) 95 08/20/19 08:07 Room Air 08/20/19 08:00 81 08/20/19 08:00 98.5 97 18 141/80 (100) 96 08/20/19 04:00 98.3 89 20 140/63 (88) 96 08/20/19 04:00 90 08/20/19 00:00 77 08/20/19 00:00 98.0 77 18 149/70 (96) 99 Intake and Output 08/19/19 08/20/19 19:00 07:00 Intake Total 56 ml 1000 ml Balance 56 ml 1000 ml IV Total 56 ml 1000 ml # Voids 1 1 # Bowel Movements 1 Laboratory Tests Test 08/20/19 20:35 Erythrocyte Sedimentation Rate 43 MM/HR (0-30) H Hemoglobin A1c 8.1 % (4.3-6.0) H Thyroid Stimulating Hormone (TSH) 1.016 uiU/mL (0.358-3.740) Rapid Plasma Reagin Pending Height (Feet): 5 Height (Inches): 3.00 Weight (Pounds): 230 Medications Current Medications Medications (Trade) Dose Ordered Sig/Helen Route PRN Reason Start Time Stop Time Status Last Admin Dose Admin Aspirin (ASA) 81 mg DAILY ORAL 08/20/19 09:00 09/19/19 08:59 08/20/19 08:25 Dextrose (Dextrose 50%) 25 ml Q30M PRN IV Hypoglycemia 08/19/19 22:45 09/18/19 22:44 Dextrose (Dextrose 50%) 50 ml Q30M PRN IV Hypoglycemia 08/19/19 22:45 09/18/19 22:44 Ferrous Sulfate (Feosol) 325 mg DAILY ORAL 08/20/19 09:00 09/19/19 08:59 08/20/19 08:25 Folic Acid (Folate) 1 mg DAILY ORAL 08/20/19 09:00 09/19/19 08:59 08/20/19 08:25 Furosemide (Lasix) 40 mg DAILY ORAL 08/20/19 09:00 09/19/19 08:59 08/20/19 08:25 Hydrochlorothiazide (Hydrodiuril) 25 mg DAILY ORAL 08/20/19 09:00 09/19/19 08:59 08/20/19 08:25 Insulin Aspart (NovoLOG) BEFORE MEALS AND HS SUBQ 08/19/19 22:45 09/18/19 22:44 08/20/19 21:20 Multivitamins Therapeutic (Therapeutic Multivitamin) 1 ea DAILY ORAL 08/20/19 09:00 09/19/19 08:59 08/20/19 08:25 Pantoprazole (Protonix) 40 mg DAILY ORAL 08/20/19 09:00 09/19/19 08:59 08/20/19 08:25 Assessment/Plan Assessment/Plan: Assessment 1. History of cardiomyopathy. 2. Diabetes mellitus. 3. Altered mental status. 4. Previous CVA. 5. Previous cardiac arrest. 6. Heart failure systolic and diastolic dysfunction LVEF 40-45% 7. Mitral regurgitation 8. Mild pulmonary hypertension 9. CVA PLAN: Aspirin Statin Spot dose diuretics prn, no signs of fluid overload, currently on lasix daily Stress test when stable given cardiomyopathy Monitor for arrhythmias on telemetry, outpatient ziopatch Blood pressure and glucose control Start metoprolol/lisinopril for cardiomyopathy Check lipid panel PT/OT Noble Calix MD Aug 20, 2019 22:17
[2019-08-21] VITALS: BP 150/78
[2019-08-21 04:00] VITALS: BP 132/92
--- NOTE | 2019-08-21 04:00 | NUR ---
NURSE NOTES: Patient in bed asleep with no S/S of distress. Will continue to monitor.
[2019-08-21] MEDS: NovoLOG Insulin Flexpen SUBQ SCH ×4 (06:32→23:25)
--- NOTE | 2019-08-21 07:03 | NUR ---
HAND-OFF: Report given to Fidel Rodgers RN. Patient in bed with no S/S of distress. Endorsed plan of care.
--- NOTE | 2019-08-21 07:32 | NUR ---
NURSE NOTES: Report received from GHASSAN King. Pt is lying comfortably in semi-fowlers. A+Ox3, denies pain/SOB. Respirations are even and unlabored on room air. IV site in intact and saline locked. Bed is at lowest position, brakes engaged, siderails x2, bed alarm on, and call light within reach. Pt is in stable condition at this time; will continue to monitor.
[2019-08-21 07:36] LABS: CHOLESTEROL 171 MG/DL (< 200); HDL CHOLESTEROL 63 MG/DL (40-60); TRIGLYCERIDES 90 MG/DL (30-150)
[2019-08-21 08:00] VITALS: BP 146/91
[2019-08-21] MEDS: Aspirin Baby 81mg ORAL SCH (08:55)
[2019-08-21] MEDS: Furosemide 40mg tab ORAL SCH (08:56)
[2019-08-21] MEDS: Metoprolol Succinate XL 25mg tab ORAL SCH (08:56)
[2019-08-21] MEDS: Lisinopril 2.5mg tab ORAL SCH (08:56)
[2019-08-21] MEDS: Multivitamin w/Minerals tab ORAL SCH (08:56)
--- NOTE | 2019-08-21 10:12 | NUR ---
*-* INSURANCE *-* ALL CLINICALS AND REVIEWS HAVE BEEN FAXED TO: KYLE F:[phone]
--- NOTE | 2019-08-21 10:46 | CDS Physician Query ---
Clarification is required for compliance, coding accuracy, and to reflect severity of illness for this patient Dear Dr. Calix, Date 08.21.19 Contact [phone] "Heart Failure / CHF" documented in the cardiology consultation. Please Clarify: Acuity [ ] Acute [ ] Chronic [ ] Acute on Chronic Present on Admission: [ ] Yes [ ] No [ ] Clinically Undetermined Physician signature Date Please also document in your Progress Notes and/or Discharge Summary and indicate if the condition was present on admission. DANO
--- NOTE | 2019-08-21 11:15 | NUR ---
ST NOTES: REFERRED FOR SPEECH/LANGUAGE/COGNITIVE EVALUATION BY DR PENG (NEUROLOGIST), SEE FULL REPORT TO FOLLOW ON THIS 64 Y.O. 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 IN [place] SINCE 2009 AND HAS TWO DAUGHTERS (ONE LOCAL AND ONE IN [place]). SPEECH PRODUCTION: [facility] DIALECT AND LIKELY PREMORBID AND MILD ARTICULATORY IMPRECISION (FOR TONGUE TIP SOUNDS) RELATES TO MISSING UPPER TEETH (NO DENTURES AND HAS MOST OF HER LOWER TEETH EXCEPT BILATERAL MOLARS). SKILLS ARE GROSSLY FUNCTIONAL. RATE IS SLOWER DUE TO PAUSES FOR WORD-RETRIEVAL / NAMING DEFICITS. VOICE LOUDNESS IS ADEQUATE. LANGUAGE: PREMORBIDLY SAID SOME WORDS DIFFERENTLY PER HER DAUGHTER (SAID "DENTRIES" FOR DENTURES). RECEPTIVE LANGUAGE FOR SIMPLE SENTENCES GOOD WILL CHECK COMPLEX LATER. EXPRESSIVE APHASIA AND DYSNOMIA NOTED, PROBLEMS FINDING WORDS (AUG/SEP/NOT DEC FOR ). HAS ERRORS THAT WORD SUBSTITUTIONS OR SHE CAN'T RECALL THE WORD AT ALL UNTIL SHE IS CUED WITH WORD-FINDING CUES. USING SOME SPONTANEOUS STRATEGIES. SOME CIRCUMLOCUTION USED IN SENTENCES. READING: DTR NOEL TO BRING IN HER GLASSES (CANNOT SEE SMALL PRINT) WRITING: MECHANICS MAY BE AFFECTED SINCE SHE HAS R UE DEFICIT COGNITION: ALERT AND ATTENDING WELL. ORIENTED TO HOSPITAL BUT WILL HAVE PROBLEMS WITH TIME RECALL THAT RELATES MORE TO WORD-RETRIEVAL DEFICITS. RECENT MEMORY TESTING WILL BE AFFECTED BY WORD-RETRIEVAL DEFICITS. AWARE THAT SHE HAD A STROKE. RECOMMENDATIONS: CONTINUE WITH FORMAL SPEECH/LANGUAGE/COGNITIVE/VISUAL EVAL AND TX INDICATED IN GOALS.
--- NOTE | 2019-08-21 11:32 | NUR ---
SWALLOW / ST NOTES: REFERRED FOR SWALLOW EVALUATION/SCREEN (GIVEN NEW CVA DX) BY DR MADRIGAL/GINETTE, SEE FULL REPORT. DYSPHAGIA RISK FACTORS FOR THIS 64 Y.O.F.: NEW L CVA AND RSW (S/S SINCE LAST WEEK PER HER DTR WHEN SHE STOPPED TAKING A BATH). MRI ACUTE NONHEMORRHAGIC CVA POST PARIETAL LOBE WITH LOCAL EDEMA. CXR CLEAR NOW. H/O RIGHT MANDIBULAR INFECTION 10/2017, GERD (ON PROTONIX), DIABETES POORLY CONTROLLED AT [facility] [place] 2017 (ON CCHO-LOW DIET THEN); OBESITY CLASS 3 (211 LBS) NOW MORBIDLY OBESE PER RD AND BMI WENT FROM 38.7 TO 40 NOW. 2017 ON SOFT CHEW DIET AND THIN LIQUIDS. CURRENTLY ON A CCHO-MED DIET AND SOFT CHEW/THIN LIQUID TEXTURES WITH GOOD INTAKE (BUT NEEDS HELP TO CUT FOOD) WITHOUT REPORTED OVERT ASPIRATION PER RN AND PATIENT. INITIAL IMPRESSIONS: GROSSLY FUNCTIONAL SWALLOW WITH TSP PUREED AND SEQUENTIAL SIPS VIA STRAW OF WATER W/O OVERT ASPIRATION (3 OZ WATER HERB SWALLOW PROTOCOL) MILDLY SLOWER BUT GROSSLY FUNCTIONAL SWALLOW WITH MASTICATED SOLID (1/2 CRACKER) W/O OVERT ASPIRATION BUT HAS NO MOLARS. HAS SILENT ASPIRATION RISK DUE TO ACUTE CVA DX RECOMMENDATIONS: CONSIDER MOD BARIUM SWALLOW STUDY ONLY IF INDICATED IP OR OP IF DC TO FURTHER ASSESS SWALLOW, DETERMINE SILENT ASP RISK, AND ATTEMPT TRIAL TX. IF PO CONTINUES FOR QUALITY OF LIFE, CONTINUE WITH PO BUT DOWNGRADE TO MECH SOFT CHOPPED (DUE TO NO MOLARS AND R UE DEFICIT WITH SELF-FEEDING) AND THIN LIQUIDS WITH POSTED ASPIRATION AND REFLUX PRECAUTIONS. PER RD LOW NA AND CCHO-LOW DIET TYPE AND PT WILL NEED EDUCATION ON DIET SINCE SHE TENDS TO EAT CANNED FOODS. SKILLED DYSPHAGIA MANAGEMENT AND TX SHORT TERM LIKELY. D/W SAIRA ALDRICH, GHASSAN FRASER, AND PATIENT/FAMILY
[2019-08-21 12:00] VITALS: BP 149/90
--- NOTE | 2019-08-21 12:00 | NUR ---
NURSE NOTES: Pt able to pivot to BSC safely with assist.
--- NOTE | 2019-08-21 12:53 | NUR ---
STAFF NURSE MIDWIF[employer]AFF [employer] OFFICER SI: KEYSHA Bland 98.8 HR 76 RR 20 B/P 149/90 RA 98% IS: LOPRESSOR PO ZESTRIL PO LASIX PO TELE STATUS
--- NOTE | 2019-08-21 13:14 | NUR ---
RD ASSESSMENT & RECOMMENDATIONS SEE CARE ACTIVITY FOR COMPLETE ASSESSMENT DAILY ESTIMATED NEEDS: Needs based on DM, cardiac, obese (63kg adj) 20-25 kcals/kg 5110-7391 total kcals 1-1.5 g protein/kg 63-95 g total protein Fluid per MD, on diuretics NUTRITION DIAGNOSIS: 1) Decreased sodium and fat needs r/t obesity and cardiac history as evidenced by BMI >40, pt is 205% of odeal body weight, adm w/ acute CVA, elev BP (149/90). CURRENT DIET: CCHO Low, Cardiac, now chopped PO DIET RECOMMENDATIONS: CCHO Low, Cardiac/ texture per PARKING ENFORCER ADDITIONAL RECOMMENDATIONS: 1) Calibrated bed scale or standing scale for wt assessment Pt on diuretics, daily weights required 2) Consider oral hypoglycemics for additional BG control 3) B-complex daily 4) Check lytes and hydration status daily, replete as needed
--- NOTE | 2019-08-21 13:41 | Pulmonology Progress Note ---
Assessment/Plan Assessment/Plan IMPRESSION: 1. History of cardiomyopathy. ECHO shows LVEF 40% 2. Diabetes mellitus. 3. Altered mental status. Has new CVA 4. Previous CVA. 5. Previous cardiac arrest. DISCUSSION: 1. Admit to the hospital. 2. Seen by Cardiology. 3. Reviewed 2D echo. 4. Reviewed MRI brain. 5. Continue medications. 6. Requested Neurology consultation. 7. I will follow carefully. Will need SNf for rehab Jermain Mcelroy M.D. Subjective Interval Events: Having difficulty with speech and swalloeing Constitutional: Reports: no symptoms HEENT: Repors: no symptoms Respiratory: Reports: no symptoms Cardiovascular: Reports: no symptoms Gastrointestinal/Abdominal: Reports: no symptoms Genitourinary: Reports: no symptoms Allergies: Coded Allergies: No Known Allergies (Unverified , 09/09/16) Objective Last 24 Hour Vital Signs Date Time Temp Pulse Resp B/P (MAP) Pulse Ox O2 Delivery O2 Flow Rate FiO2 08/21/19 12:00 98.8 76 20 149/90 (109) 97 08/21/19 09:00 Room Air 08/21/19 08:56 146/91 08/21/19 08:56 79 146/91 08/21/19 08:00 85 08/21/19 08:00 98.3 79 18 146/91 (109) 96 08/21/19 06:00 76 08/21/19 04:00 98.1 77 17 132/92 (105) 99 08/21/19 00:00 75 08/21/19 00:00 97.5 81 21 150/78 (102) 97 08/20/19 21:00 Room Air 08/20/19 20:00 97.6 80 18 142/81 (101) 95 08/20/19 20:00 75 08/20/19 16:00 98.2 78 18 157/79 (105) 97 08/20/19 16:00 70 Intake and Output 08/20/19 08/21/19 19:00 07:00 Intake Total 720 ml Output Total 800 ml 850 ml Balance -80 ml -850 ml Intake Oral 720 ml Output Urine Total 800 ml 850 ml # Voids 3 3 General Appearance: no acute distress HEENT: normocephalic Respiratory/Chest: chest wall non-tender, lungs clear Cardiovascular: normal peripheral pulses Abdomen: normal bowel sounds Microbiology Date/Time Source Procedure Growth Status 08/19/19 17:05 Blood Blood Culture - Preliminary NO GROWTH AFTER 24 HOURS Resulted 08/19/19 17:00 Blood Blood Culture - Preliminary NO GROWTH AFTER 24 HOURS Resulted Laboratory Tests 08/20/19 20:35: Erythrocyte Sedimentation Rate 43H, Hemoglobin A1c 8.1H, Thyroid Stimulating Hormone (TSH) 1.016, Rapid Plasma Reagin [Pending] 08/21/19 05:56: Triglycerides Level 90, Cholesterol Level 171, LDL Cholesterol 87, HDL Cholesterol 63H, Cholesterol/HDL Ratio 2.7L Current Medications Medications (Trade) Dose Ordered Sig/Helen Route PRN Reason Start Time Stop Time Status Last Admin Dose Admin Aspirin (ASA) 81 mg DAILY ORAL 08/20/19 09:00 09/19/19 08:59 08/21/19 08:55 Dextrose (Dextrose 50%) 25 ml Q30M PRN IV Hypoglycemia 08/19/19 22:45 09/18/19 22:44 Dextrose (Dextrose 50%) 50 ml Q30M PRN IV Hypoglycemia 08/19/19 22:45 09/18/19 22:44 Ferrous Sulfate (Feosol) 325 mg DAILY ORAL 08/20/19 09:00 09/19/19 08:59 08/21/19 08:56 Folic Acid (Folate) 1 mg DAILY ORAL 08/20/19 09:00 09/19/19 08:59 08/21/19 08:56 Furosemide (Lasix) 40 mg DAILY ORAL 08/20/19 09:00 09/19/19 08:59 08/21/19 08:56 Hydrochlorothiazide (Hydrodiuril) 25 mg DAILY ORAL 08/20/19 09:00 09/19/19 08:59 08/21/19 08:56 Insulin Aspart (NovoLOG) BEFORE MEALS AND HS SUBQ 08/19/19 22:45 09/18/19 22:44 08/21/19 12:32 Lisinopril (Zestril) 2.5 mg DAILY ORAL 08/21/19 09:00 09/20/19 08:59 08/21/19 08:56 Metoprolol Succinate (Toprol XL) 25 mg DAILY ORAL 08/21/19 09:00 09/20/19 08:59 08/21/19 08:56 Multivitamins Therapeutic (Therapeutic Multivitamin) 1 ea DAILY ORAL 08/20/19 09:00 09/19/19 08:59 08/21/19 08:56 Pantoprazole (Protonix) 40 mg DAILY ORAL 08/20/19 09:00 09/19/19 08:59 08/21/19 08:56 Jermain Mcelroy MD Aug 21, 2019 13:41
[2019-08-21 15:45] VITALS: BP 102/61
--- NOTE | 2019-08-21 16:02 | NUR ---
*-* INSURANCE *-* ALL AVAILABLE CLINICALS HAVE BEEN FAXED TO: [employer]#[id number] Software Engineer [employer] #[phone] Addendum: 08/21/19 at 1604 by LUIS FERNANDO MANSFIELD CM & HUMANA F:[phone] Addendum: 08/22/19 at 1044 by LUIS FERNANDO MANSFIELD CM FABIEN:VALERIA 08/22/19
--- NOTE | 2019-08-21 18:48 | Neurology Progress Note ---
Interim History Interim History Interim History Ms. Del Rosario feels better today. She feels a little stronger today. She did cooperate with the physical and occupational therapists and did some walking. She was also evaluated by the speech pathologist. She continues to be cognitively impoverished. Her right side continues to be significantly weak. She denies any new neurological symptoms. Review of Systems Neuro Review of Systems Benign. Objective Physical Exam Last Vital Signs Date Time Temp Pulse Resp B/P (MAP) Pulse Ox O2 Delivery O2 Flow Rate FiO2 08/21/19 16:00 70 08/21/19 15:45 97.7 18 102/61 (75) 99 08/21/19 09:00 Room Air Laboratory Tests Test 08/20/19 20:35 08/21/19 05:56 Erythrocyte Sedimentation Rate 43 MM/HR (0-30) H Hemoglobin A1c 8.1 % (4.3-6.0) H Thyroid Stimulating Hormone (TSH) 1.016 uiU/mL (0.358-3.740) Rapid Plasma Reagin Pending Triglycerides Level 90 MG/DL (30-150) Cholesterol Level 171 MG/DL (< 200) LDL Cholesterol 87 mg/dL (<100) HDL Cholesterol 63 MG/DL (40-60) H Cholesterol/HDL Ratio 2.7 (3.3-4.4) L Neurologic Exam Objective PHYSICAL EXAMINATION: GENERAL: She is a well-developed and well-nourished, obese black lady, lying in bed, in no acute distress. HEAD: Normocephalic and atraumatic. EENT: Examination benign. NECK: No neck rigidity was observed. NEUROLOGICAL EXAMINATION: MENTAL STATUS EXAMINATION: She was awake and alert. She was oriented to [facility], [facility], and July. She did not know the date or the year. She was able to recall 3/3 words immediately, but could only remember 2/3 words in 1 minute and 3 minutes. She was only able to remember President Obama, but could not remember presidents prior to that or following that. Her mathematical skills were impaired. Her visuospatial function was also impaired. She told me that she had a 12th grade education from a school in [place]. SPEECH: She had a mild dysarthria. LANGUAGE: She had an anomia for low-frequency words. CRANIAL NERVES EXAMINATION: II: Visual mason were intact on confrontation testing. III, IV & : External ocular movements were full and the pupils 3 mm in diameter, equal, round, regular, and reactive to light. V: She had normal facial sensations and the temporales, masseters, and pterygoids functioned normally. VII: She had a right seventh central facial paresis. VIII: She was able to hear well bilaterally and had no nystagmus. IX: The palate moved symmetrically on phonation. X: She had no hoarseness of voice. XI: The sternocleidomastoids and trapezii functioned normally. XII: The tongue was in the midline without any fasciculations or atrophy. MOTOR SYSTEM: The tone was normal in all four extremities. Examination of muscle mass revealed no focal wasting. Examination of power revealed G 5/5 power on the left side. She had G 4+/5 power in the right upper extremity except for G 2/5 power in the finger extensors and G 3/5 power in the finger flexors. She had G 4/5 power in the right lower extremity except for G 3/5 power in the iliopsoas. SENSORY EXAMINATION: She had intact sensations to pinprick and light touch. She had bilateral graphesthesia. COORDINATION: She performed well on yjyteq-oc-[id number] testing on the left side. On the right side, it was exceedingly difficult to perform because of weakness. She was unable to perform [id number]-[id number]-[id number] testing bilaterally. REFLEXES: 1+ on the right and trace+ on the left at the biceps, triceps, and brachioradialis. 0 at both knees and ankles. The plantar responses were flexor bilaterally. STANCE & GAIT: Could not be tested. Impression/Recommendations Diagnostic Impression 1. Ms. Ilene Del Rosario is a 64-year-old, right-handed, black lady, who does have a past history of hypertension and diabetes mellitus for numerous years. She also has an apparent history of a cardiac arrest, a stroke the details of which are unknown to us, and a cardiomyopathy, who approximately 3-4 days prior to admission suddenly woke up with problems with talking and moving her right hand and then noticed that she was also having problems with walking. These problems continued and as a result of that she presented to the [facility] emergency room on 08/19/2019 and was admitted. 2. She feels better today. She feels a little stronger today. She did cooperate with the physical and occupational therapists and did some walking. She was also evaluated by the speech pathologist. She continues to be cognitively impoverished. Her right side continues to be significantly weak. She denies any new neurological symptoms. 3. On neurological examination, at this time, she does demonstrate problems with orientation, recent and remote memory, visuospatial function, higher cognitive function, and language. She also has a mild dysarthria, right seventh central facial paresis, right hemiparesis involving the upper extremity slightly more than the lower extremity, globally diminished reflexes that are slightly brisker on the right side compared to the left in the upper extremities with areflexia in the lower extremities, inability to perform heel- to-rosario testing, and significant problems performing eabsem-ik-lzhb testing on the right side, and an inability to stand and walk. 4. The CT scan of the brain without contrast reveals a left parietal hypodensity. 5. An MRI scan of the brain reveals recent left parietal and frontal infarct. 6. Laboratory test on my initial evaluation revealed a relatively normal CBC. The chemistry panel revealed a BUN elevated at 26, creatinine elevated at 1.6, blood glucose elevated at 211, and alkaline phosphatase elevated at 118. The Urinalysis revealed 1+ leukocyte esterase, 0-2 red blood cells, and 2-4 white blood cells per high power field. 7. Further laboratory tests have revealed that her hemoglobin A1c is significantly elevated at 8.1%, her ESR is reasonable at 43, her total cholesterol is 171 with an HDL of 63 and an LDL of 87, and her TSH is normal at 1.10. 8. Her carotid duplex reveals 30-50% right and 20-30% left internal carotid artery stenosis. 9. The patient's history, neurological examination, laboratory data, and imaging studies are most consistent with a recent left parietal and frontal infarct. The etiology for the infarct is most probably hypertensive/diabetic cerebrovascular disease. Recommendations 1. Continue present management. 2. The patient's blood pressure should be controlled with the aim being a systolic blood pressure between 110 and 130 for the next few days and then on the long-term being equal to or less than 120/80 at all times. 3. Her blood sugars should be controlled with a hemoglobin A1c goal being <6%. 4. Physical, occupational and speech and language therapy should be started to rehabilitate her. 5. The patient will benefit significantly from a brief course of acute rehabilitation. 6. Observe closely. Jv Nguyen M.D., M.S.P.H. Jv Nguyen MD Aug 21, 2019 18:48
--- NOTE | 2019-08-21 19:21 | NUR ---
HAND-OFF: Report given to GHASSAN King. Pt is sitting up watching tv, in stable condition. Plan of care endorsed.
--- NOTE | 2019-08-21 19:25 | NUR ---
NURSE NOTES: Received report from Fidel Rodgers RN. Patient in bed AAO X3-4 with no complaints of acute pain or discomfort noted. On bedrest for weakness and AMS, IV line intact and patent and on continuous cardiac monitoring per protocol. Safety precaution in place; siderails X3 up, call light within reach, bed in lowest position, brakes and alarm on at all times. Needs and wants anticipated and attended, will continue plan of care.
[2019-08-21 20:00] VITALS: BP 115/64
[2019-08-22] VITALS: BP 125/75
--- NOTE | 2019-08-22 02:52 | NUR ---
NURSE NOTES: Patient in bed asleep with no S/S of distress noted. Will continue to monitor.
[2019-08-22 04:00] VITALS: BP 135/81
[2019-08-22] MEDS: NovoLOG Insulin Flexpen SUBQ SCH ×3 (05:53→17:26)
--- NOTE | 2019-08-22 07:31 | NUR ---
HAND-OFF: Report given to Chirag Gerardo RN. Patient in bed asleep with no S/S of distress. Endorsed plan of care.
--- NOTE | 2019-08-22 07:35 | NUR ---
NURSE NOTES: Received report and patient from Fernando FERRELL in bed eating breakfast, denies any pain, no s/s of respiratory distress noted. IV is intact and patent SL. Bed is on lowest position, brakes engaged for safety, call light is within reach. Will continue with the plan of care.
[2019-08-22 08:00] VITALS: BP 138/77
[2019-08-22] MEDS: Multivitamin w/Minerals tab ORAL SCH (08:13)
[2019-08-22] MEDS: Metoprolol Succinate XL 25mg tab ORAL SCH (08:14)
[2019-08-22] MEDS: Aspirin Baby 81mg ORAL SCH (08:14)
[2019-08-22] MEDS: Lisinopril 2.5mg tab ORAL SCH (08:14)
[2019-08-22] MEDS: Furosemide 40mg tab ORAL SCH (08:15)
--- NOTE | 2019-08-22 09:24 | Pulmonology Progress Note ---
Assessment/Plan Assessment/Plan IMPRESSION: 1. History of cardiomyopathy. ECHO shows LVEF 40% 2. Diabetes mellitus. 3. Altered mental status. Has new CVA 4. Previous CVA. 5. Previous cardiac arrest. DISCUSSION: 1. Admit to the hospital. 2. Seen by Cardiology. 3. Reviewed 2D echo. 4. Reviewed MRI brain. 5. Continue medications. 6. Appreciate Neurology consultation. 7. I will follow carefully. Will need SNf for rehab DC to SNF today Jermain Mcelroy M.D. Subjective Interval Events: Doing better Constitutional: Reports: no symptoms HEENT: Repors: no symptoms Respiratory: Reports: no symptoms Cardiovascular: Reports: no symptoms Gastrointestinal/Abdominal: Reports: no symptoms Genitourinary: Reports: no symptoms Neurologic: Reports: no symptoms Allergies: Coded Allergies: No Known Allergies (Unverified , 09/09/16) Objective Last 24 Hour Vital Signs Date Time Temp Pulse Resp B/P (MAP) Pulse Ox O2 Delivery O2 Flow Rate FiO2 08/22/19 08:14 138/77 08/22/19 08:14 81 138/77 08/22/19 04:00 97.5 85 19 135/81 (99) 99 08/22/19 04:00 80 08/22/19 00:00 73 08/22/19 00:00 98.0 82 17 125/75 (92) 99 08/21/19 21:00 Room Air 08/21/19 20:00 78 08/21/19 20:00 98.5 77 18 115/64 (81) 97 08/21/19 16:00 70 08/21/19 15:45 97.7 72 18 102/61 (75) 99 08/21/19 12:00 98.8 76 20 149/90 (109) 97 08/21/19 12:00 67 Intake and Output 08/21/19 08/22/19 19:00 07:00 Intake Total 480 ml 120 ml Output Total 300 ml 700 ml Balance 180 ml -580 ml Intake Oral 480 ml 120 ml Output Urine Total 300 ml 700 ml # Voids 4 2 # Bowel Movements 1 1 General Appearance: no acute distress HEENT: normocephalic Respiratory/Chest: chest wall non-tender, lungs clear Cardiovascular: normal peripheral pulses Microbiology Date/Time Source Procedure Growth Status 08/19/19 17:05 Blood Blood Culture - Preliminary NO GROWTH AFTER 48 HOURS Resulted 08/19/19 17:00 Blood Blood Culture - Preliminary NO GROWTH AFTER 48 HOURS Resulted Current Medications Medications (Trade) Dose Ordered Sig/Helen Route PRN Reason Start Time Stop Time Status Last Admin Dose Admin Aspirin (ASA) 81 mg DAILY ORAL 08/20/19 09:00 09/19/19 08:59 08/22/19 08:14 Dextrose (Dextrose 50%) 25 ml Q30M PRN IV Hypoglycemia 08/19/19 22:45 09/18/19 22:44 Dextrose (Dextrose 50%) 50 ml Q30M PRN IV Hypoglycemia 08/19/19 22:45 09/18/19 22:44 Ferrous Sulfate (Feosol) 325 mg DAILY ORAL 08/20/19 09:00 09/19/19 08:59 08/22/19 08:13 Folic Acid (Folate) 1 mg DAILY ORAL 08/20/19 09:00 09/19/19 08:59 08/22/19 08:15 Furosemide (Lasix) 40 mg DAILY ORAL 08/20/19 09:00 09/19/19 08:59 08/22/19 08:15 Hydrochlorothiazide (Hydrodiuril) 25 mg DAILY ORAL 08/20/19 09:00 09/19/19 08:59 08/22/19 08:15 Insulin Aspart (NovoLOG) BEFORE MEALS AND HS SUBQ 08/19/19 22:45 09/18/19 22:44 08/22/19 05:53 Lisinopril (Zestril) 2.5 mg DAILY ORAL 08/21/19 09:00 09/20/19 08:59 08/22/19 08:14 Metoprolol Succinate (Toprol XL) 25 mg DAILY ORAL 08/21/19 09:00 09/20/19 08:59 08/22/19 08:14 Multivitamins Therapeutic (Therapeutic Multivitamin) 1 ea DAILY ORAL 08/20/19 09:00 09/19/19 08:59 08/22/19 08:13 Pantoprazole (Protonix) 40 mg DAILY ORAL 08/20/19 09:00 09/19/19 08:59 08/22/19 08:14 Jermain Mcelroy MD Aug 22, 2019 09:24
[2019-08-22 12:00] VITALS: BP 123/67
--- NOTE | 2019-08-22 12:30 | Diagnostic Imaging Report ---
APPROVED REPORT CPT Code: 16973 Vascular Symptoms CVA/TIA: Doppler Spectral Velocity Analysis RightLeft RIGHT SIDE: CCA - Imaging reveals no significant plaque in the common carotid artery. ICA arteries. The Doppler signal indicates the degree of stenosis is mild (30-50%) in the internal carotid, and in the external carotid arteries. VERTEBRAL/SUBCLAVIAN- The vertebral and subclavian arteries are within normal limits. LEFT SIDE: CCA - Imaging reveals no significant plaque in the common carotid artery. ICA arteries. The Doppler signal indicates the degree of stenosis is minimal (20-30%) in the internal carotid, and (10%) in the external carotid arteries. VERTEBRAL/SUBCLAVIAN- The vertebral and subclavian arteries are within normal limits.
--- NOTE | 2019-08-22 12:49 | NUR ---
ST NOTES: SWALLOW/SPEECH THERAPY STATUS SWALLOW STATUS: WILL HOLD ON MBSS FOR NOW DUE TO SCHEDULE CONFLICTS. GOALS MET FOR STAFF EDUCATED/TRAINED IN PRECAUTIONS AND GOALS FOR INTAKE MET. SPEECH/LANGUAGE/COGNITIVE STATUS: RECENT MEMORY PROBLEMS NOTED. DID NOT RECALL SHE HAS A PURE WICK TO URINATE. ALSO DID NOT RECALL HOW TO USE THE CALL BUTTON. WORD-FINDING ASSESSMENT: SEE EVALUATION REPORT. LEFT INFORMATION FOR FAMILY ABOUT WORD-FINDING STRATEGIES AND STROKE/APHASIA IN GENERAL. CALLED HER DTR TO ASK FOR THE NAMES OF THE GRANDCHILDREN SINCE SHE COULD NOT RECALL THEIR NAMES. EDUCATED/TRAINED FAMILY, PATIENT, BARBI BOYD, AND GHASSAN COLBERT IN POSTED COMMUNICATION AND RECENT MEMORY TIPS AND STRATEGIES. PLAN: CONTINUE WITH PLAN OF CARE IN SPEECH/SWALLOW EVALUATION REPORTS.
[2019-08-22 16:00] VITALS: BP 139/74
--- NOTE | 2019-08-22 16:45 | NUR ---
NURSE NOTES: Interfacility report given to Bethany FERRELL at [facility].
--- NOTE | 2019-08-22 19:05 | NUR ---
NURSE NOTES: Patient is being discharged per MD order to [facility]. IV removed with no bleeding or infiltration noted. surveillance monitor removed. All discharge protocols followed. Belonging sheet accounted for, patient unable to sign. Patient's medication collected from pharmacy and handed over to Ambulance personnel. Patient was stable.
--- NOTE | 2019-08-23 09:33 | Discharge Summary ---
Discharge Summary Discharge Summary _ DATE OF ADMISSION: 08/19/2019 DATE OF DISCHARGE: 08/22/2019 DISCHARGED BY: Dr. Mcelroy REASON FOR ADMISSION: 64 years old female with past medical history of hypertension, history of AK in 2016, COPD, diabetes mellitus, was brought by EMS with altered mental status. Patient was noted to be more confused over the past week. She was unable to care for herself. No known fevers. No vomiting. Upon evaluation patient was tachycardic with heart rate 128 and elevated blood pressure 185/88. Pulse oximetry was stable on room air , and patient was afebrile. Laboratory work-up revealed no leukocytosis, stable hemoglobin and hematocrit. Stable electrolytes. BUN 26, creatinine 1.6 . Glucose 211. Lactic acid 0.6 . Stable electrolytes and LFT. Troponin 0.002. Albumin 3.9. Urinalysis revealed +1 leukocyte esterase , minimal pyuria and few bacteria. CT of the head demonstrated small area of edema in the left parietal lobe. Possibly acute ischemia. Mild atrophy of the brain noted as well. Chest x-ray demonstrated no acute cardiopulmonary pathology. Patient subsequently admitted to telemetry floor for further management. CONSULTANTS: food preparer Dr. Calix neurologist Dr. Nguyen [facility]: Patient admitted to telemetry floor. Neurology and cardiology consults were requested. MRI of the brain revealed acute nonhemorrhagic CVA, involving the left posterior parietal lobe ; localized edema with a mild sulcal effacement noted. Carotid duplex demonstrated no significant plaques; minimal degree of stenosis. Lipid panel was stable. Neurologist closely followed. Per neurologist , patient history, neurological examination, laboratory data and imaging studies were most consistent with recent left parietal and frontal infarct. The etiology of infarct was most probably hypertensive/diabetic cerebrovascular disease. Patient started on antiplatelet therapy with aspirin and statin. TSH was within normal limits. Blood pressure was managed with beta-yaneli , TATE inhibitor, hydrochlorothiazide and Lasix. Neurologist recommended to keep systolic blood pressure between 110 and 140 for the next few days ; and on the long-term equal or below 120/80 at all times. Overedge Sewer followed. Echocardiogram revealed global left ventricular hypokinesia with ejection fraction of 40 to 45%. No aortic regurgitation. Mild to moderate mitral regurgitation. Moderate diastolic dysfunction grade 2. Right ventricular systolic pressure of 39 consistent with mild pulmonary hypertension. Overedge Sewer recommended continue with guideline directed medical treatment for known history of cardiomyopathy , including beta-yaneli, TATE inhibitor , Lasix . Volumes were closely monitored. Per food preparer, patient did not show any signs of fluid overload. Lasix recommended as needed/spot dose. Overedge Sewer recommended monitor for any arrhythmia while on telemetry floor and consider Ziopatch as outpatient. Telemetry did not show any evidence of arrhythmia. Blood sugar was managed with sliding scale of insulin. Hemoglobin A1c 8.1, not at goal Patient will need optimization of blood sugar control to bring HgA1c down. Patient was work with physical and speech therapists. Per neurologist , patient will benefit significantly for a brief course of acute rehabilitation. GI prophylaxis provided. Supportive care provided. Bowel regimen instituted. Patient clinically stabilized. [facility],. Patient was stable for transfer. FINAL DIAGNOSES: Acute nonhemorrhagic CVA, left parietal and frontal Congestive heart failure, chronic , with systolic diastolic dysfunction Cardiomyopathy with ejection fraction 40 to 45% Mitral regurgitation Mild pulmonary hypertension Diabetes mellitus Altered mental status due to new CVA DISCHARGE MEDICATIONS: See Medication Reconciliation list. DISCHARGE INSTRUCTIONS: [facility] Follow up with medical doctor at the facility. I have been assigned to dictate discharge summary for this account. I was not involved in the patient's management. Maggie Sheehan NP Aug 23, 2019 09:33
--- NOTE | 2019-08-23 13:35 | NUR ---
*-* INSURANCE *-* ALL AVAILABLE CLINICALS HAVE BEEN FAXED TO: [place] Tracking#[id number] Housekeeping/Laundry -Marsha & KYLE CONN:VALERIA 08/22/19 F:[phone]
== END 2019-08-22 19:00 | DRG 65 ==
LOC: EMR 16:58 → 2E 19:50 → EDBEDREQ 20:03 → 2E 08-20 20:26
DX: I63.89 Other cerebral infarction (principal); I50.42 Chronic combined systolic (congestive) and diastolic (congestive) heart failure; I42.9 Cardiomyopathy, unspecified; I11.0 Hypertensive heart disease with heart failure; I27.20 Pulmonary hypertension, unspecified; I34.0 Nonrheumatic mitral (valve) insufficiency; Z86.74 Personal history of sudden cardiac arrest; Z86.73 Personal history of transient ischemic attack (TIA), and cerebral infarction without residual deficits; Z79.84 Long term (current) use of oral hypoglycemic drugs; Z79.82 Long term (current) use of aspirin; E11.9 Type 2 diabetes mellitus without complications; J44.9 Chronic obstructive pulmonary disease, unspecified; Z87.891 Personal history of nicotine dependence
CPT/HCPCS: 36415; 70450; 70551; 71045; 80053; 80061; 81003; 82550; 82553; 82962; 83036; 83605; 83735; 84100; 84443; 84484; 85025; 85651; 86592; 87040; 93005; 93306; 93880; 96361; 96365; 99285; J1815